=== PATIENT | female | born 1930 | race Caucasian/White ===

== ENCOUNTER → 2017-03-28 | Day surgery (SDC) | payer OTHER ==
[2017-03-06 10:44] VITALS: Ht 158.8 cm; Wt 75.0 kg
[~2017-03-28] VITALS: Ht 158.8 cm; Wt 75.0 kg
[~2017-03-28] MED LIST: 500ML BSS 0.3ML EPI 1:1000PF IRRIG ONE; ACETAMINOPHEN 325 MG TAB PO PRN; AMVISC PLUS 0.8ML SYRINGE INT OCU ONE; ATEN-173 PO; ATOR10TA88 PO; ATROPINE SULFATE 0.1 MG/ML 5ML SYR IV PRN; AcetaZOLAMIDE 250 MG TAB PO SCH; BETAXOLOL HCL 0.25% OP SUSP PER DROP CHARGE OPL SCH; BRIMONIDINE TART 0.2% OP SOLN PER DROP CHARGE ONE; BSS FLUSH ONE; CHOL1CAP13 PO; ENDOCOAT 0.85ML SYRINGE INT OCU ONE; EpHEDrine SULFATE INJ 50 MG/ML AMP IV PRN; EpINEphrine INJ 1MG/ML AMP 1 MG/ML AMP ONE; LIDOCAINE 4% OP SOLN DROP CHARGE ONE; LIDOCAINE 4% OP SOLN DROP CHARGE OPL SCH; LIDOCAINE HCL 1% MPF 2 ML VIAL ONE; MIDAZOLAM HCL 1 MG/ML 2ML VIAL ONE; MIX: 4ML BSS 1ML EPI 1:1000 PF INSTIL ONE; MOXIFLOXACIN OPH SOLN PER DROP CHARGE ONE; OCUCOAT 1 ML SOLN IO ONE; ONDANSETRON INJ 2 MG/ML 2 ML VIAL IV PRN; POVIDONE-IODINE OP SOLN 30 ML BTL ONE; PROPARACAINE 0.5% OP SOLN PER DROP CHARGE OPL SCH; SODIUM CHLORIDE 0.9% 1000ML 500 ML IV SCH; TOBRAMYCIN/DEXAMETHASONE OPH OINT PER APPLN CHARGE ONE; TRIATAB3 PO; TRMCR130WC TOP; WARF2.5T8 PO
--- NOTE | 2017-03-28 07:46 | History & Physical Bridge - SC ---
H&P Re-Evaluation Bridge Note: I have examined the patient, reviewed the History & Physical and in the interval since the performance of the History & Physical I have noted the following changes of clinical significance: No changes noted
[2017-03-28] MEDS: PHENYLEPHRINE HCL 2.5% OP SOLN PER DROP CHARGE OPL SCH ×2 (09:29→09:33)
[2017-03-28] MEDS: TROPICAMIDE 1% OP SOLN PER DROP CHARGE OPL SCH ×2 (09:30→09:34)
[2017-03-28] MEDS: CYCLOPENTOLATE HCL 1% OP SOLN PER DROP CHARGE OPL SCH ×2 (09:31→09:35)
[2017-03-28] MEDS: MOXIFLOXACIN OPH SOLN PER DROP CHARGE OPL SCH ×2 (09:32→09:39)
--- NOTE | 2017-03-28 10:17 | Discharge Instructions-SurgCtr ---
Discharge Instructions Date of Service Mar 28, 2017. Visit Reason for Visit: Cataract Left Eye Discharge Discharge Diagnosis / Problem: lens implant left eye Discharge Goals Goal(s): Improve function Activity Recommendations Activity Limitations: resume your previous activity Lifting Limitations: no more than 10 pounds Exercise/Sports Limitations: gradually increase as tolerated May Resume Sexual Activity: when tolerated Shower/Bathe: tomorrow Driving or Machine Use: resume 1 day after discharge Anesthesia . Post Anesthesia Instructions: If you have had General Anesthesia or IV Sedation: * Do not drive today. * Resume driving when surgeon permits. * Do not make important decisions or sign legal documents today. * Call surgeon for: 1. Temperature elevations greater than 101 degrees F. 2. Uncontrollable pain. 3. Excessive bleeding. 4. Persistent nausea and vomiting. 5. Medication intolerance (nausea, vomiting or rash). * For nausea and vomiting use only clear liquids such as: tea, soda, bouillon until nausea subsides, then gradually increase diet as tolerated. * If you have any concerns or questions, call your surgeon's office. If physician is unavailable and it is an emergency, call 911 or go to the nearest emergency room. . Instructions / Follow-Up Instructions / Follow-Up ACTIVITY RECOMMENDATIONS: * Light activities. * Mild irritation and blurred vision are common for the first few days. * You may walk outside, read, watch television. * Redness around the white part of the eye is common. MEDICATIONS: Resume previous medications unless instructed otherwise by your surgeon. * Take white Diamox (Acetazolamide) tablet at 1 pm today. Start all eye drops at 1 pm today: * Eye drops (today and tomorrow): Prednisone - one drop in operative eye every 3 hours while awake Ofloxacin - one drop in operative eye every 3 hours while awake SPECIAL CARE INSTRUCTIONS: * Tape plastic shield over eye to sleep at night. Call your doctor at with any concerns or problems. FOLLOW UP VISIT: Follow-up with Dr Umaña at [facility] office as scheduled. Diet Recommendations Home Diet: no limitations Procedures Procedures Performed: cataract extraction with lens implant Pending Studies Studies pending at discharge: no Medical Emergencies . Who to Call and When: Medical Emergencies: If at any time you feel your situation is an emergency, please call 911 immediately. . Non-Emergent Contact Non-Emergency issues call your: Primary Care Coordinator Call Non-Emergent contact if: your pain is not controlled [phone] . . "Provider Documentation" section prepared by Gaston Umaña. .
--- NOTE | 2017-03-28 10:18 | [facility] Operative Report ---
Operative Report Date of Service Mar 28, 2017. Operative Report 1. PREOPERATIVE DIAGNOSIS: Senile nuclear cataract, left eye. 2. POSTOPERATIVE DIAGNOSIS: Senile nuclear cataract, left eye. 3. PROCEDURE: Phacoemulsification of left cataract with posterior chamber lens implant, type Bausch [employer] Lomb, model MX60, power +24.0 diopters. ANESTHESIA: Local standby. SURGEON: Dr. Umaña. COMPLICATIONS: None. OPERATING TIME: 10 minutes. 4. OPERATION AND FINDINGS: DESCRIPTION OF PROCEDURE: The left pupil was dilated. The anesthetic was administered using a topical technique. The left eye was prepped and draped. A speculum was placed. A clear corneal incision was formed. The chamber was filled with Amvisc Plus and Endocoat. Epinephrine solution was used. A paracentesis was placed. A capsulorrhexis was performed. The nucleus was hydrodissected. The lens was removed with phacoemulsification. Time was 6.84 seconds. The aspiration unit was used to remove the cortex. The capsule was filled with Amvisc Plus. The lens implant was folded and placed into the capsule. The incision was hydrated. The Amvisc was aspirated. The wound was secure. The chamber was deep. The pupil was round. Brimonidine, TobraDex ointment and Vigamox solution were placed. The speculum was removed. The patient was returned to the Recovery Room in stable condition. I attest to the content of the Intraoperative Record and any orders documented therein. Any exceptions are noted below. The scribe's documentation has been prepared in my presence, under my direction and personally reviewed by me in its entirety. I confirm that the note above accurately reflects all work, treatment, procedures, and medical decision making performed by me. I personally scribed for Gaston Umaña M.D. (SOTO) on 03/28/17 at 10:18. Electronically submitted by aRchel Mcbride ([email or web address]).
[2017-03-28 10:45] VITALS: BP 157/78; PULSE 65; TEMP 36.5; O2SAT 99
--- NOTE | 2017-03-28 10:52 | Anesthesiology Progress Note ---
Anesthesia Post Op Note Date & Time Mar 28, 2017 at 10:52 Vital Signs Pain Intensity: 0 Vital Signs Past 12 Hours Date Time Temp Pulse Resp B/P (MAP) Pulse Ox O2 Delivery O2 Flow Rate FiO2 03/28/17 10:45 36.5 65 16 157/78 (104) 99 Room Air 03/28/17 10:22 36.3 68 16 150/85 (106) 100 Room Air 03/28/17 09:18 36.5 70 18 187/100 (129) 100 Room Air 171/95 (120) Notes Mental Status: alert / awake / arousable, participated in evaluation Nausea / Vomiting: adequately controlled Pain: adequately controlled Airway Patency, RR, SpO2: stable & adequate BP & HR: stable & adequate Hydration State: stable & adequate Anesthetic Complications: no major complications apparent
== END | disposition home or self-care (01) ==
LOC: X.SURG 08:38
PROVIDERS: ATTEND Specialist
DX: H25.12 Age-related nuclear cataract, left eye (principal); I48.91 Unspecified atrial fibrillation; I10 Essential (primary) hypertension; Z68.30 Body mass index [BMI] 30.0-30.9, adult; Z90.89 Acquired absence of other organs; Z79.01 Long term (current) use of anticoagulants

== ENCOUNTER → 2017-04-11 | Day surgery (SDC) | payer OTHER ==
[2017-04-04 11:36] VITALS: Ht 158.8 cm; Wt 75.0 kg
[~2017-04-11] VITALS: Ht 158.8 cm; Wt 75.0 kg
[~2017-04-11] MED LIST changes: -BETAXOLOL HCL 0.25% OP SUSP PER DROP CHARGE OPL SCH; +BETAXOLOL HCL 0.25% OP SUSP PER DROP CHARGE OPR SCH; +LACTATED RINGER'S 1000ML 500 ML IV SCH; -LIDOCAINE 4% OP SOLN DROP CHARGE OPL SCH; -ONDANSETRON INJ 2 MG/ML 2 ML VIAL IV PRN; -PROPARACAINE 0.5% OP SOLN PER DROP CHARGE OPL SCH; +PROPARACAINE 0.5% OP SOLN PER DROP CHARGE OPR SCH; -SODIUM CHLORIDE 0.9% 1000ML 500 ML IV SCH
[2017-04-11] MEDS: PHENYLEPHRINE HCL 2.5% OP SOLN PER DROP CHARGE OPR SCH ×2 (11:32→11:36)
[2017-04-11] MEDS: TROPICAMIDE 1% OP SOLN PER DROP CHARGE OPR SCH ×2 (11:33→11:38)
[2017-04-11] MEDS: CYCLOPENTOLATE HCL 1% OP SOLN PER DROP CHARGE OPR SCH ×2 (11:34→11:39)
[2017-04-11] MEDS: MOXIFLOXACIN OPH SOLN PER DROP CHARGE OPR SCH ×2 (11:35→11:51)
--- NOTE | 2017-04-11 12:37 | Discharge Instructions-SurgCtr ---
Discharge Instructions Date of Service Apr 11, 2017. Visit Reason for Visit: Right Cataract Discharge Discharge Diagnosis / Problem: lens implant right eye Discharge Goals Goal(s): Improve function Activity Recommendations Activity Limitations: resume your previous activity Lifting Limitations: no more than 10 pounds Exercise/Sports Limitations: gradually increase as tolerated May Resume Sexual Activity: when tolerated Shower/Bathe: tomorrow Driving or Machine Use: resume 1 day after discharge Anesthesia . Post Anesthesia Instructions: If you have had General Anesthesia or IV Sedation: * Do not drive today. * Resume driving when surgeon permits. * Do not make important decisions or sign legal documents today. * Call surgeon for: 1. Temperature elevations greater than 101 degrees F. 2. Uncontrollable pain. 3. Excessive bleeding. 4. Persistent nausea and vomiting. 5. Medication intolerance (nausea, vomiting or rash). * For nausea and vomiting use only clear liquids such as: tea, soda, bouillon until nausea subsides, then gradually increase diet as tolerated. * If you have any concerns or questions, call your surgeon's office. If physician is unavailable and it is an emergency, call 911 or go to the nearest emergency room. . Instructions / Follow-Up Instructions / Follow-Up ACTIVITY RECOMMENDATIONS: * Light activities. * Mild irritation and blurred vision are common for the first few days. * You may walk outside, read, watch television. * Redness around the white part of the eye is common. MEDICATIONS: Resume previous medications unless instructed otherwise by your surgeon. * Take white Diamox (Acetazolamide) tablet at 3 pm today. Start all eye drops at 3 pm today: * Eye drops (today and tomorrow): Prednisone - one drop in operative eye every 3 hours while awake Ofloxacin - one drop in operative eye every 3 hours while awake SPECIAL CARE INSTRUCTIONS: * Tape plastic shield over eye to sleep at night. Call your doctor at with any concerns or problems. FOLLOW UP VISIT: Follow-up with Dr Umaña at [place] office as scheduled. Diet Recommendations Home Diet: no limitations Procedures Procedures Performed: cataract extraction with lens implant Pending Studies Studies pending at discharge: no Medical Emergencies . Who to Call and When: Medical Emergencies: If at any time you feel your situation is an emergency, please call 911 immediately. . Non-Emergent Contact Non-Emergency issues call your: Peoplesoft Analyst Call Non-Emergent contact if: your pain is not controlled [phone] . . "Provider Documentation" section prepared by Gaston Umaña. .
--- NOTE | 2017-04-11 12:39 | [facility] Operative Report ---
Operative Report Date of Service Apr 11, 2017. Operative Report 1. PREOPERATIVE DIAGNOSIS: Senile nuclear cataract, right eye. 2. POSTOPERATIVE DIAGNOSIS: Senile nuclear cataract, right eye. 3. PROCEDURE: Phacoemulsification of right cataract with posterior chamber lens implant, type Bausch & Lomb, model MX60, power +23.5 diopters. ANESTHESIA: Local standby. SURGEON: Dr. Umaña. COMPLICATIONS: None. OPERATING TIME: 10 minutes. 4. OPERATION AND FINDINGS: DESCRIPTION OF PROCEDURE: The right pupil was dilated. The anesthetic was administered using a topical technique. The right eye was prepped and draped. A speculum was placed. A clear corneal incision was formed. The chamber was filled with Amvisc Plus and Endocoat. Epinephrine solution was used. A paracentesis was placed. A capsulorrhexis was performed. The nucleus was hydrodissected. The lens was removed with phacoemulsification. Time was 6.86 seconds. The aspiration unit was used to remove the cortex. The capsule was filled with Amvisc Plus. The lens implant was folded and placed into the capsule. The incision was hydrated. The Amvisc was aspirated. The wound was secure. The chamber was deep. The pupil was round. Brimonidine, TobraDex ointment and Vigamox solution were placed. The speculum was removed. The patient was returned to the Recovery Room in stable condition. I attest to the content of the Intraoperative Record and any orders documented therein. Any exceptions are noted below. The scribe's documentation has been prepared in my presence, under my direction and personally reviewed by me in its entirety. I confirm that the note above accurately reflects all work, treatment, procedures, and medical decision making performed by me. I personally scribed for Gaston Umaña M.D. (SOTO) on 04/11/17 at 12:39. Electronically submitted by Rachel Mcbride ([email or web address]).
[2017-04-11 13:11] VITALS: BP 154/85; PULSE 60; TEMP 36.7; O2SAT 98
--- NOTE | 2017-04-11 13:14 | Anesthesiology Progress Note ---
Anesthesia Post Op Note Date & Time Apr 11, 2017 at 13:13 Vital Signs Pain Intensity: 0 Vital Signs Past 12 Hours Date Time Temp Pulse Resp B/P (MAP) Pulse Ox O2 Delivery O2 Flow Rate FiO2 04/11/17 12:41 36.0 66 16 164/91 (115) 100 Room Air 04/11/17 11:22 36.4 66 16 181/99 (126) 100 Room Air Notes Mental Status: alert / awake / arousable, participated in evaluation Nausea / Vomiting: adequately controlled Pain: adequately controlled Airway Patency, RR, SpO2: stable & adequate BP & HR: stable & adequate Hydration State: stable & adequate Anesthetic Complications: no major complications apparent
== END | disposition home or self-care (01) ==
LOC: X.SURG 09:43
PROVIDERS: ATTEND Specialist
DX: H25.11 Age-related nuclear cataract, right eye (principal); I10 Essential (primary) hypertension; E78.00 Pure hypercholesterolemia, unspecified; M19.90 Unspecified osteoarthritis, unspecified site; Z98.42 Cataract extraction status, left eye; I25.10 Atherosclerotic heart disease of native coronary artery without angina pectoris; I48.91 Unspecified atrial fibrillation; Z79.01 Long term (current) use of anticoagulants

== ENCOUNTER 2018-10-16 15:39 | Inpatient (IN) ==
--- OUTSIDE RECORDS SUMMARY | 2018-10-16 15:42 | External Medical Summary | Continuity of Care Document ---
:1930 Author Name Donnie Morgan, Provider Address Unavailable Unavailable , Care Team Providers Name Role Phone Unavailable Unavailable Unavailable PCP, NO Unavailable Unavailable Problems Active medical history not documented Allergies and Adverse Reactions No Known Drug Allergies (Allergy) Medications Medications not documented Procedures Procedures not documented Immunizations Immunizations not documented Plan of Treatment Planned Observations Planned Goals not documented Results No Known Results Results not documented
[2018-10-16] MEDS ORDERED: LABETALOL HCL IV 5 MG/ML 20ML IV STA (16:16)
--- NOTE | 2018-10-16 16:30 | CT Scan Report ---
CT head/brain wo con CLINICAL HISTORY: 88 years-old Female with expressive aphasia eal for cva. Acute strokelike symptoms TECHNIQUE: Multiple axial CT images of the head were obtained without contrast. A dose lowering tech nique was utilized adhering to the principles of ALARA. CT DOSE: 537.48 mGy.cm COMPARISON: None. FINDINGS: No acute intracranial hemorrhage, midline shift, intracranial mass, hydrocephalus, territorial ischem ia or abnormal extra-axial collection. Age-related involutional changes. Since of white matter hypode nsities are suggestive of chronic microvascular ischemic disease. Senescent calcifications of the maeve tiform nuclei. Cerebral vascular calcifications are also noted. The calvarium is intact. Mild mucosal thickening of the paranasal sinuses. Trace left mastoid effusi on. The right mastoid air cells are clear. Soft tissues and orbits are unremarkable. Prior bilateral cataract repair. IMPRESSION: No acute intracranial abnormality. The above report was generated using voice recognition software. It may contain grammatical, syntax o r spelling errors. Electronically signed by: Joaquin Lisa M.D. 10/16/2018 4:29 PM
--- NOTE | 2018-10-16 16:32 | XRay Report ---
XR chest 1V portable CLINICAL HISTORY: stroke symptoms mental status change COMPARISON STUDY: 10/11/2014 FINDINGS: Mild stable cardiomegaly. Mild chronic interstitial prominence. Diaphragms are smooth. No f ocal infiltrative process. IMPRESSION: Chronic change. No acute process. The above report was generated using voice recognition software. It may contain grammatical, syntax or spelling errors. Electronically signed by: Nathan Gunderson M.D. 10/16/2018 4:30 PM
[2018-10-16 16:33] LABS: Basophils # (auto) 0.01 K/uL (0-0.2); Basophils % (auto) 0.1 %; Eosinophils # (auto) 0.16 K/uL (0-0.5); Eosinophils % (auto) 1.9 %; Hematocrit (blood only) 44.7 % (37-47); Hemoglobin 16.2 g/dL (12.0-16.0); Immature Granulocytes # (auto) 0.01 K/uL (0.00-0.02); Immature Granulocytes % (auto) 0.1 %; Lymphocytes # (auto) 4.07 K/uL (1.2-3.4); Lymphocytes % (auto) 48.9 %; Mean Corpuscular Hgb Conc 36.2 g/dL (32-36); Mean Corpuscular Volume 90.1 fL (80-100); Mean Platelet Volume 10.2 fL (7.4-10.4); Monocytes # (auto) 0.85 K/uL (0.11-0.59); Monocytes % (auto) 10.2 %; Neutrophils # (auto) 3.22 K/uL (1.4-6.5); Neutrophils % (auto) 38.8 %; Platelet Count 195 K/uL (130-400); RDW Coefficient of Variation 12.5 % (11.5-14.5); Red Blood Count 4.96 M/uL (4.2-5.4); White Blood Count 8.32 K/uL (4.8-10.8)
[2018-10-16 16:40] LABS: Alanine Aminotransferase 27 U/L (12-78); Albumin Level 4.3 gm/dl (3.4-5.0); Aspartate Aminotransferase 27 U/L (15-37); BUN Creatinine Ratio 14.8 (10-20); Blood Urea Nitrogen 13 mg/dl (7-18); Calcium 8.9 mg/dl (8.5-10.1); Carbon Dioxide 24 mmol/L (21-32); Chloride 100 mmol/L (98-107); Creatinine Clr Calc Pharmacy 42.5 ml/min; Est GFR (African American) 65.3; Est GFR (Non-African American) 56.3; Glucose 85 mg/dl (70-99); Potassium 3.4 mmol/L (3.5-5.1); Sodium 134 mmol/L (136-145)
[2018-10-16 16:45] LABS: Albumin Globulin Ratio 1.6 (0.9-2); Alkaline Phosphatase 64 U/L (45-117); Bilirubin,Total 1.6 mg/dl (0.2-1); Globulin 2.7 gm/dl (2.5-4.0); Troponin I < 0.015 ng/ml (0-0.045)
--- NOTE | 2018-10-16 17:54 | History & Physical Report ---
Date of Service October 16, 2018 Assessment & Plan (1) Altered mental status: Pt presented to ER with c/o AMS described as confusion/trouble thinking and had generalized weakness. Occurred while she was in open garage painting her car and then cleaning paint brushes with paint thinners. Symptoms lasted approx 1 hour and pt sat outside in fresh air and have since resolved. In ER pt afebrile, P: 75, R: 21, BP: 229/96, 219/102, 95% on RA. WBC: 8, Hgb: 16.2, Na: 134, K: 3.4, magnesium: 2.0. negative troponin. PT: 17.8, INR: 1.8, PTT: 30.3 CT Head: no acute changes CXR: no acute changes DDX: TIA/Stroke, fume exposure -Pt currently symptom free -Tele to monitor for arrhythmias -EKG in am -trend troponin -lipids, HA1C in am. Pending TSH -cbc, bmp in am -MRI without contrast -U/S carotids -echo -aspiration precautions -PT/OT consult -continue statin, continue coumadin -allow permissive HTN, labetalol SBP>180 or DBP>110 -neurology consult (2) Hypertensive urgency: BP in ER 229/96. Pt was given labetalol 5mg IV. repeat BP 187/84 No current neuro symptoms. No CP, SOB. -Pt with hx HTN. Pt stopped lisinopril 2.5mg daily secondary to itching -monitor BP -continue triamterene/HCTZ, metoprolol -labetalol prn HTN (3) Atrial fibrillation: Chronic a-fib Current rate controlled in 60-70's INR: 1.8 -will dose coumadin 2.5mg tonight -monitor INR and adjust coumadin dosage as appropriate (4) Dyslipidemia: -Continue statin (5) Diastolic dysfunction: Hx diastolic dysfunction -Current euvolemic (6) CKD (chronic kidney disease), stage III: Cr: 0.9. Baseline ~0.9 -monitor renal functions DVT Prophylaxis -On Coumadin Full Code as per discussion with pt Follows with Dr Bernard Salguero for routine care Pt was seen with Dr Pope. See addendum History of Present Illness Chief Complaint: AMS Primary Care Provider: Dr Bernard Salguero Pt is 88 y/o F with PMH chronic atrial fibrillation on Coumadin, HTN, dyslipidemia, CKD III, diastolic dysfunction presented to ER with c/o AMS. Pt states was painting her car in her garage and reports that garage door was open. States she was then using paint thinners to clean the brushes and was in the garage for approximately 1 hour. Pt states felt like she couldn't think and had some generalized weakness. She spoke to her son who noticed pt seemed confused. This was around 1:30PM. She reports a neighbor then came to check on her. She sat outside for awhile. 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 Symptoms lasted approx 1 hour and have since resolved. Pt reports chronic exertional dyspnea. Denies recent illness. Denies fever/chills, diaphoresis, N/V/D/C, CHOWDHURY, dizziness, syncope, vision changes, neck pain, CP, increased SOB, orthopnea, palpitations, cough, sore throat, choking, otalgia, rhinorrhea, abdominal pain, paresthesias, extremity edema, rashes, urinary symptoms. 02/2018: Hx stress echo : no inducible ischemia, EF: 55%, mild aortic regurgitation, moderate mitral regurgitation, moderate tricuspid regurgitation, mild pulmonary HTN 07/2018: Holter: a-fib with average HR 63bpm, minimal HR of 39 bpm, maximum HR of 169 bpm, PVCs moderate number of isolated complexes and periods of ventricular bigeminy Allergies Allergy/AdvReac Type Severity Reaction Status Date / Time No Known Allergies Allergy Verified 10/16/18 16:28 Home Medications Home Medications Medication Instructions Recorded Confirmed Type atorvastatin 10 mg PO HS 10/16/18 10/16/18 History cholecalciferol (vitamin D3) 2,000 unit PO DAILY 10/16/18 10/16/18 History metoprolol succinate 25 mg PO DAILY 10/16/18 10/16/18 History triamterene-hydrochlorothiazid 1 tab PO DAILY 10/16/18 10/16/18 History warfarin 2.5 mg PO UD 10/16/18 10/16/18 History Past Med/Surg History Medical History Dyslipidemia (Chronic) Diastolic dysfunction (Chronic) CKD (chronic kidney disease), stage III (Chronic) Atrial fibrillation (Chronic 05/25/14) HTN (hypertension) (Chronic) Pneumonia (Resolved) Surgical History History of hemorrhoidectomy (Chronic) Hx of tonsillectomy (Chronic) Family History Father Dyslipidemia Mother Hypertension Social History Current Living Situation: Alone Feels Safe at Home: Yes Smoking Status: Never smoker Hx Alcohol Use: Yes (1 beer twice a month) Hx Substance Use: No Review of Systems Review of Systems: All systems reviewed & are unremarkable except as noted in HPI & below Physical Exam Physical Exam: General: no acute distress, WDWN Head: normocephalic, atraumatic Eyes: PERRL, EOM's intact, conjunctiva non-injected, anicteric ENT: normal inspection external ears, nose, mucous membranes moist Neck: supple, trachea midline Lungs: clear, no respiratory distress, no wheezing/rhonchi/rales CV: irregularly irregular, rate 68, systolic murmur, no pretibial edema Abd: normal BS, soft, non-tender Ext: no cyanosis, no calf tenderness Neuro: A&O x 3, no focal deficits noted, normal speech, no facial drooping, tongue midline, strength 5/5 throughout bilateral upper and lower extremities, normal affect Skin: warm, dry Results & Data Vital Signs (Past 12 Hours) Vital Signs Temp Pulse Resp BP Pulse Ox 10/16/18 17:16 74 15 213/100 H 10/16/18 17:15 72 19 10/16/18 17:00 71 22 10/16/18 16:47 72 23 10/16/18 16:46 78 24 219/102 H 10/16/18 16:45 75 17 10/16/18 16:31 76 21 210/93 H 10/16/18 16:30 74 19 10/16/18 16:16 80 18 209/104 H 98 10/16/18 16:15 82 21 96 10/16/18 16:01 76 23 205/104 H 99 10/16/18 16:00 70 17 98 10/16/18 15:59 87 19 96 10/16/18 15:49 36.7 C 78 18 219/115 H 98 10/16/18 15:46 75 21 229/96 H 95 Laboratory Results Short CBC 10/16/18 Range/Units 15:46 WBC 8.32 (4.8-10.8) K/uL Hgb 16.2 H (12.0-16.0) g/dL Hct 44.7 (37-47) % Plt Count 195 (130-400) K/uL BMP 10/16/18 15:46 Sodium 134 L Potassium 3.4 L Chloride 100 Carbon Dioxide 24 BUN 13 Creatinine 0.91 Glucose 85 Calcium 8.9 Cardiac Enzymes 10/16/18 Range/Units 15:46 Troponin I < 0.015 (0-0.045) ng/ml Liver Function 10/16/18 Range/Units 15:46 Total Bilirubin 1.6 H (0.2-1) mg/dl AST 27 (15-37) U/L ALT 27 (12-78) U/L Alkaline Phosphatase 64 (45-117) U/L Albumin 4.3 (3.4-5.0) gm/dl Diagnostic Findings CT HEAD: IMPRESSION: No acute intracranial abnormality. CXR: IMPRESSION: Chronic change. No acute process. ECG Rate (beats per minute): 71 Rhythm: atrial fibrillation Findings: + T-wave inversion (inferior) Additional Comments: q wave septal Supervising Physician Co-Signing Physician Notes Patient is an 88-year-old female with history of atrial fibrillation on chronic anticoagulation, diastolic dysfunction and other medical problems presents with history of altered mental status. Patient was using turpentine to clean her paint brushes in her garage with door open and developed confusion, generalized weakness which lasted for about 1 hour duration. Please review HPI for complete details of the presentation. Currently while in ED she was noted to have elevated high blood pressure. She is alert awake and oriented x3, weakness has resolved. CT head showed no acute intracranial abnormality. No known history of loss of consciousness, seizure like activity, headache, change in vision, slurred speech. On exam patient is moderately built and nourished, no apparent distress, normocephalic atraumatic, lungs are clear to auscultation, irregularly irregular rhythm, no murmur, no pedal edema, abdomen soft nontender, n eurologically no focal deficits. Patient is admitted for evaluation of altered mental status, hypertensive urgency. Her INR is subtherapeutic. Her symptoms are likely secondary to exposure to turpentine. Differential to rule out acute CVA/TIA. Will admit in telemetry floor. Stroke work-up. Neurology consulted. Allow permissive hypertension. Labetalol as needed. Discussed with poison cont rol--supportive management suggested. Neuro checks. PT OT prior to discharge. I personally reviewed the record. Patient is interviewed and examined at bedside. Patient's care is coordinated with Denice Morales PA-C. Please refer to the documentation above for details of patient's presentation and for discussion of other issues. (1) Altered mental status Altered mental status type: unspecified Qualified Code(s): R41.82 - Altered mental status, unspecified
[2018-10-16 17:57] LABS: INR 1.8 (0.9-1.1); Partial Thromboplastin Ratio 1.1; Partial Thromboplastin Time 30.3 Seconds (21.0-31.0); Prothrombin Time 17.8 Seconds (9.0-12.0)
[2018-10-16] MEDS ORDERED: LABETALOL HCL IV 5 MG/ML 20ML IV PRN (19:10)
[2018-10-16] MEDS ORDERED: ACETAMINOPHEN 325 MG TAB PO PRN (19:10)
[2018-10-16] MEDS ORDERED: PHARMACIST DISCHARGE MED REC CONSULT PRN (19:10)
[2018-10-16] MEDS ORDERED: POTASSIUM CHLORIDE 20 MEQ TABCR PO ONE (19:45)
[2018-10-16 19:58] LABS: Troponin I 0.023 ng/ml (0-0.045)
--- NOTE | 2018-10-16 20:48 | Magnetic Resonance Report ---
MR brain wo con HISTORY: 88 years-old Female AMS R/O stroke acutely altered mental status with strokelike symptoms COMPARISON: CT head 10/16/2018 TECHNIQUE: Multiplanar multisequence MRI of the brain was obtained without use of IV contrast. FINDINGS: The large [id number]-[id number]-kafx tie knitter helper localizer images demonstrate no gross extracranial abnormality. There i s no restricted diffusion to suggest acute or subacute infarction. Midline structures including the c orpus callosum, brainstem, optic chiasm and pituitary gland appear unremarkable on the sagittal T1 se michael. 5 mm pineal gland cyst. No cerebellar tonsillar herniation. Degenerative changes noted about th e imaged cervical spine. No acute intracranial hemorrhage, midline shift, abnormal extra-axial collections, hydrocephalus or i ntracranial mass identified. Age-related involutional changes with extensive patchy T2/FLAIR hyperint ensities suggestive of advanced chronic microvascular ischemic disease. The major flow voids at the l evel of the skull base appear to be patent. Moderate left mastoid effusion. Mild mucosal thickening a bout the paranasal sinuses. Prior bilateral cataract repair. Soft tissues and skull are unremarkable. IMPRESSION: 1. No acute intracranial abnormality, specifically no acute or subacute infarction. 2. Age-related involutional changes with extensive chronic microvascular ischemic disease. 3. Moderate left mastoid effusion with mild paranasal sinus disease. The above report was generated using voice recognition software. It may contain grammatical, syntax o r spelling errors. Electronically signed by: Joaquin Lisa M.D. 10/16/2018 8:47 PM
[2018-10-16] MEDS: ATORVASTATIN 10 MG TAB PO SCH (21:01)
[2018-10-16] MEDS: WARFARIN SOD 2.5 MG TAB PO SCH (21:01)
--- NOTE | 2018-10-16 23:03 | Ultrasound Report ---
US carotid doppler BI CLINICAL HISTORY: 88 years-old Female with AMS. Acutely altered mental status COMPARISON: Brain MRI of same day TECHNIQUE: Multiple real time sonographic images of the carotid bifurcations were obtained assessing zabala scale, color Doppler and spectral wave form appearance FINDINGS: RIGHT CAROTID: The peak systolic velocity within the right ICA measures 50 cm/sec. The end diastoli c velocity measured 8 cm/sec. The ICA to CCA ratio measured 0.81 which correlates with a stenosis of 0-50%. There is moderate mixed plaque formation of the right carotid bulb and proximal right ICA. LEFT CAROTID: The peak systolic velocity within the left ICA measures 60 cm/sec. The end diastolic velocity measured 12 cm/sec. The ICA to CCA ratio measured 0.87 which correlates with a stenosis of 0 -50%. Moderate mixed plaque formation about the left carotid bulb, proximal internal and external ca rotid arteries. Elevated peak systolic velocity of 200 cm/s noted about the left external carotid art mariangel. There is normal antegrade vertebral flow bilaterally. Blood pressure on the right measures 205/86 and on the left measures 203/99. IMPRESSION: 1. Mixed plaque formation of the bilateral carotid bulbs and proximal carotid arteries without hemod ynamically significant stenosis of the internal carotid arteries. 2. Normal antegrade vertebral flow bilaterally. The above report was generated using voice recognition software. It may contain grammatical, syntax o r spelling errors. Electronically signed by: Joaquin Lisa M.D. 10/16/2018 11:01 PM
--- NOTE | 2018-10-17 00:26 | Emergency Department Note ---
Entered by Isa Baez acting as a scribe for History of Present Illness General Chief complaint: Hypertension Source: patient and family Mode of arrival: EMS Limitations: no limitations History of Present Illness Provider complaint: confusion Onset (ago): hour(s) (2.5) Location: head Pain Consistency: + other (episode) Quality: + other (confusion) Associated symptoms: + denies other symptoms (numbness, difficulty walking, vision issues, dizzy, abd pain) and + weakness; no chest pain, no fever/chills, no headaches and no shortness of breath Treatments prior to arrival: other (Metoprolol) The patient is an 88 year old female who presents to the ER via EMS following an episode of confusion that occurred around 1330 today. The daughter reports that she received a call from the patients son around 1400 stating that the patient was confused and not making any sense. The patient notes that she remembers this and explains that she was using turpentine to paint her car around 1330 today and while cleaning the brush, her son called her. She reports that she was talking to him about a television show and could not think of the names. Her daughter spoke to her brother and so sent her neighbor over who is a nurse. Her nurse friend confirmed that the patient was having difficulty speaking. She states that this episode lasted about an hour and that she feels baseline now. She notes that she does have a history of hypertension and that she did take her Metoprolol today. The daughter reports that she was recently switched to this medication by her cop. The patient denies any episodes of focal numbness or weakness. She also denies any difficulty walking, vision issues, headaches, dizziness, fevers, chest pain, shortness of breath or abdominal pain. She reports that she also has a history of a-fib and is on Coumadin. Home Medications Home Medications Medication Instructions Recorded Confirmed Type atorvastatin 10 mg PO HS 10/16/18 10/16/18 History cholecalciferol (vitamin D3) 2,000 unit PO DAILY 10/16/18 10/16/18 History metoprolol succinate 25 mg PO DAILY 10/16/18 10/16/18 History triamterene-hydrochlorothiazid 1 tab PO DAILY 10/16/18 10/16/18 History warfarin 2.5 mg PO UD 10/16/18 10/16/18 History Allergies Allergy/AdvReac Type Severity Reaction Status Date / Time No Known Allergies Allergy Verified 10/16/18 16:28 Past Med/Surg History Medical History Dyslipidemia (Chronic) Diastolic dysfunction (Chronic) CKD (chronic kidney disease), stage III (Chronic) Atrial fibrillation (Chronic 05/25/14) HTN (hypertension) (Chronic) Pneumonia (Resolved) Surgical History History of hemorrhoidectomy (Chronic) Hx of tonsillectomy (Chronic) Family History Father Dyslipidemia Mother Hypertension Social History Current Living Situation: Alone Feels Safe at Home: Yes Smoking Status: Never smoker Hx Alcohol Use: Yes (1 beer twice a month) Hx Substance Use: No Review of Systems See HPI for pertinent positives & negatives. and A total of 10 systems reviewed and were otherwise negative Physical Exam Vital Signs Vital Signs - 24 hr 10/16/18 15:46 10/16/18 15:49 10/16/18 15:59 Temperature 36.7 C Temperature Source Oral Sepsis Recent Fever Within 48 Hours No Sepsis Action Taken by Nursing No Action Required Pulse Rate 75 78 87 Pulse Rate [Right] Pulse Rate from SpO2 Sensor 82 84 Respiratory Rate 21 18 19 Blood Pressure 229/96 H 219/115 H Blood Pressure [Right Arm] Blood Pressure Mean 140 149 Blood Pressure Mean [Right Arm] Blood Pressure Position [Right Arm] Pulse Oximetry 95 98 96 Oxygen Delivery Method Room Air 10/16/18 16:00 10/16/18 16:01 10/16/18 16:15 Temperature Temperature Source Sepsis Recent Fever Within 48 Hours Sepsis Action Taken by Nursing Pulse Rate 70 76 82 Pulse Rate [Right] Pulse Rate from SpO2 Sensor 73 74 82 Respiratory Rate 17 23 21 Blood Pressure 205/104 H Blood Pressure [Right Arm] Blood Pressure Mean 137 Blood Pressure Mean [Right Arm] Blood Pressure Position [Right Arm] Pulse Oximetry 98 99 96 Oxygen Delivery Method 10/16/18 16:16 10/16/18 16:30 10/16/18 16:31 Temperature Temperature Source Sepsis Recent Fever Within 48 Hours Sepsis Action Taken by Nursing Pulse Rate 80 74 76 Pulse Rate [Right] Pulse Rate from SpO2 Sensor 90 Respiratory Rate 18 19 21 Blood Pressure 209/104 H 210/93 H Blood Pressure [Right Arm] Blood Pressure Mean 139 132 Blood Pressure Mean [Right Arm] Blood Pressure Position [Right Arm] Pulse Oximetry 98 Oxygen Delivery Method 10/16/18 16:45 10/16/18 16:46 10/16/18 16:47 Temperature Temperature Source Sepsis Recent Fever Within 48 Hours Sepsis Action Taken by Nursing Pulse Rate 75 78 72 Pulse Rate [Right] Pulse Rate from SpO2 Sensor Respiratory Rate 17 24 23 Blood Pressure 219/102 H Blood Pressure [Right Arm] Blood Pressure Mean 141 Blood Pressure Mean [Right Arm] Blood Pressure Position [Right Arm] Pulse Oximetry Oxygen Delivery Method 10/16/18 17:00 10/16/18 17:15 10/16/18 17:16 Temperature Temperature Source Sepsis Recent Fever Within 48 Hours Sepsis Action Taken by Nursing Pulse Rate 71 72 74 Pulse Rate [Right] Pulse Rate from SpO2 Sensor Respiratory Rate 22 19 15 Blood Pressure 213/100 H Blood Pressure [Right Arm] Blood Pressure Mean 137 Blood Pressure Mean [Right Arm] Blood Pressure Position [Right Arm] Pulse Oximetry Oxygen Delivery Method 10/16/18 17:24 10/16/18 17:30 10/16/18 17:31 Temperature Temperature Source Sepsis Recent Fever Within 48 Hours Sepsis Action Taken by Nursing Pulse Rate 86 94 H 87 Pulse Rate [Right] Pulse Rate from SpO2 Sensor Respiratory Rate 22 18 20 Blood Pressure 217/97 H 224/95 H Blood Pressure [Right Arm] Blood Pressure Mean 137 138 Blood Pressure Mean [Right Arm] Blood Pressure Position [Right Arm] Pulse Oximetry Oxygen Delivery Method 10/16/18 17:46 10/16/18 18:00 10/16/18 18:01 Temperature Temperature Source Sepsis Recent Fever Within 48 Hours Sepsis Action Taken by Nursing Pulse Rate 75 75 70 Pulse Rate [Right] Pulse Rate from SpO2 Sensor Respiratory Rate 16 20 17 Blood Pressure 187/105 H 187/84 H Blood Pressure [Right Arm] Blood Pressure Mean 132 118 Blood Pressure Mean [Right Arm] Blood Pressure Position [Right Arm] Pulse Oximetry Oxygen Delivery Method 10/16/18 22:46 Temperature 36.5 C Temperature Source Oral Sepsis Recent Fever Within 48 Hours Sepsis Action Taken by Nursing Pulse Rate Pulse Rate [Right] 50 L Pulse Rate from SpO2 Sensor Respiratory Rate 18 Blood Pressure Blood Pressure [Right Arm] 158/78 H Blood Pressure Mean Blood Pressure Mean [Right Arm] 104 Blood Pressure Position [Right Arm] Right Lateral Pulse Oximetry 97 Oxygen Delivery Method Room Air Constitutional: Vital signs reviewed. Eyes: Pupils are equal round reactive to light. Conjunctiva are noninjected. ENT: Pharynx is clear without erythema or exudate. Mucous membranes are moist. Neck supple without meningeal signs. Respiratory: Clear to auscultation bilaterally. Breath sounds are equal bilaterally. Cardiovascular: Irregularly irregular rhythm. Normal rate. No rubs or gallops. GI: Soft, nondistended and nontender. Bowel sounds are present. Musculoskeletal: No peripheral edema. No lower extremity tenderness. Integumentary: No cyanosis. Neurological: The patient is awake and alert. Cranial nerves II-XII are intact. Motor is 5 out of 5 all extremities. Sensation is intact to light touch all extremities. Normal speech. No pronator drift. No limb ataxia. Psychiatric: Normal affect. Course 1606: The patient was evaluated in room A2, and a complete history and physical examination were performed. 1643: I spoke to poison control who stated that turpentine would not cause aphasia. 1650: I updated the patient on her test results and recommended hospitalization. 1652: I discussed the patient's case with Denice Morales PA-C [facility] Hospitalist. She will evaluate the patient for further management. Administered Medications Atorvastatin Calcium (Lipitor) 10 mg PO HS [facility] Stop: 11/15/18 20:59 Last Admin: 10/16/18 21:01 Dose: 10 mg Documented by: [id number] Warfarin Sodium (Coumadin) 2.5 mg PO DAILY@1600 [facility] Stop: 11/15/18 19:59 Last Admin: 10/16/18 21:01 Dose: 2.5 mg Documented by: [id number] Discontinued Medications Labetalol HCl (Normodyne) 5 mg IV NOW STA Stop: 10/16/18 16:17 Last Admin: 10/16/18 16:46 Dose: 5 mg Documented by: [id number] Cosigned by: [id number] Potassium Chloride (Klor-Con M20) 40 meq PO NOW ONE Stop: 10/16/18 19:46 Last Admin: 10/16/18 21:01 Dose: 40 meq Documented by: [id number] Medical Decision Making Differential Diagnosis Differential diagnosis includes: TIA, CVA, ICH, metabolic derangement, inhalation injury. Medical Records Attestation: I reviewed the patient's medical records. I did perform a limited focused review of portions of the patient's old chart on the electronic medical record. The patient has had no recent pertinent visits to this hospital. Home Medications Current Medication List: was personally reviewed by me Laboratory Data Attestation: I reviewed the patient's lab results. Result diagrams: 10/16/18 15:46 10/16/18 15:46 Lab Results 10/16/18 10/16/18 10/16/18 Range/Units 15:46 15:46 15:46 WBC 8.32 (4.8-10.8) K/uL RBC 4.96 (4.2-5.4) M/uL Hgb 16.2 H (12.0-16.0) g/dL Hct 44.7 (37-47) % MCV 90.1 (80-100) fL MCH 32.7 (25-34) pg MCHC 36.2 H (32-36) g/dL RDW Std Deviation 41.0 (36.4-46.3) fL RDW Coeff of Brandon 12.5 (11.5-14.5) % Plt Count 195 (130-400) K/uL MPV 10.2 (7.4-10.4) fL Immature Gran % (Auto) 0.1 % Neut % (Auto) 38.8 % Lymph % (Auto) 48.9 % [place] % (Auto) 10.2 % Eos % (Auto) 1.9 % Baso % (Auto) 0.1 % Immature Gran # (Auto) 0.01 (0.00-0.02) K/uL Neut # (Auto) 3.22 (1.4-6.5) K/uL Lymph # (Auto) 4.07 H (1.2-3.4) K/uL [place] # (Auto) 0.85 H (0.11-0.59) K/uL Eos # (Auto) 0.16 (0-0.5) K/uL Baso # (Auto) 0.01 (0-0.2) K/uL PT Cancelled INR Cancelled APTT Cancelled PTT Ratio Cancelled Sodium 134 L (136-145) mmol/L Potassium 3.4 L (3.5-5.1) mmol/L Chloride 100 (98-107) mmol/L Carbon Dioxide 24 (21-32) mmol/L Anion Gap 10.0 (3-11) BUN 13 (7-18) mg/dl Creatinine 0.91 (0.6-1.2) mg/dl Est Cr Clr Drug Dosing 42.5 ml/min Est GFR ( Amer) 65.3 Est GFR (Non-Af Amer) 56.3 BUN/Creatinine Ratio 14.8 (10-20) Glucose 85 (70-99) mg/dl Calcium 8.9 (8.5-10.1) mg/dl Magnesium 2.0 (1.8-2.4) mg/dl Total Bilirubin 1.6 H (0.2-1) mg/dl AST 27 (15-37) U/L ALT 27 (12-78) U/L Alkaline Phosphatase 64 (45-117) U/L Troponin I < 0.015 (0-0.045) ng/ml Total Protein 7.0 (6.4-8.2) gm/dl Albumin 4.3 (3.4-5.0) gm/dl Globulin 2.7 (2.5-4.0) gm/dl Albumin/Globulin Ratio 1.6 (0.9-2) TSH (0.300-4.500) uIu/ml 10/16/18 10/16/18 10/16/18 Range/Units 17:01 17:35 19:15 WBC (4.8-10.8) K/uL RBC (4.2-5.4) M/uL Hgb (12.0-16.0) g/dL Hct (37-47) % MCV (80-100) fL MCH (25-34) pg MCHC (32-36) g/dL RDW Std Deviation (36.4-46.3) fL RDW Coeff of Brandon (11.5-14.5) % Plt Count (130-400) K/uL MPV (7.4-10.4) fL Immature Gran % (Auto) % Neut % (Auto) % Lymph % (Auto) % [place] % (Auto) % Eos % (Auto) % Baso % (Auto) % Immature Gran # (Auto) (0.00-0.02) K/uL Neut # (Auto) (1.4-6.5) K/uL Lymph # (Auto) (1.2-3.4) K/uL [place] # (Auto) (0.11-0.59) K/uL Eos # (Auto) (0-0.5) K/uL Baso # (Auto) (0-0.2) K/uL PT Cancelled 17.8 H INR Cancelled 1.8 H APTT Cancelled 30.3 PTT Ratio Cancelled 1.1 Sodium (136-145) mmol/L Potassium (3.5-5.1) mmol/L Chloride (98-107) mmol/L Carbon Dioxide (21-32) mmol/L Anion Gap (3-11) BUN (7-18) mg/dl Creatinine (0.6-1.2) mg/dl Est Cr Clr Drug Dosing ml/min Est GFR ( Amer) Est GFR (Non-Af Amer) BUN/Creatinine Ratio (10-20) Glucose (70-99) mg/dl Calcium (8.5-10.1) mg/dl Magnesium (1.8-2.4) mg/dl Total Bilirubin (0.2-1) mg/dl AST (15-37) U/L ALT (12-78) U/L Alkaline Phosphatase (45-117) U/L Troponin I 0.023 (0-0.045) ng/ml Total Protein (6.4-8.2) gm/dl Albumin (3.4-5.0) gm/dl Globulin (2.5-4.0) gm/dl Albumin/Globulin Ratio (0.9-2) TSH 2.680 (0.300-4.500) uIu/ml Imaging Data Radiologist's Impression: Radiology results as stated below per my review and the radiologist's interpretation: XR chest 1V portable CLINICAL HISTORY: stroke symptoms mental status change COMPARISON STUDY: 10/11/2014 FINDINGS: Mild stable cardiomegaly. Mild chronic interstitial prominence. Diaphragms are smooth. No focal infiltrative process. IMPRESSION: Chronic change. No acute process. The above report was generated using voice recognition software. It may contain grammatical, syntax or spelling errors. Electronically signed by: Nathan Gunderson M.D. 10/16/2018 4:[address] head/brain wo con CLINICAL HISTORY: 88 years-old Female with expressive aphasia eal for cva. Acute strokelike symptoms TECHNIQUE: Multiple axial CT images of the head were obtained without contrast. A dose lowering technique was utilized adhering to the principles of ALARA. CT DOSE: 537.48 mGy.cm COMPARISON: None. FINDINGS: No acute intracranial hemorrhage, midline shift, intracranial mass, hydrocephalus, territorial ischemia or abnormal extra-axial collection. Age- related involutional changes. Since of white matter hypodensities are suggestive of chronic microvascular ischemic disease. Senescent calcifications of the lentiform nuclei. Cerebral vascular calcifications are also noted. The calvarium is intact. Mild mucosal thickening of the paranasal sinuses. Trace left mastoid effusion. The right mastoid air cells are clear. Soft tissues and orbits are unremarkable. Prior bilateral cataract repair. IMPRESSION: No acute intracranial abnormality. The above report was generated using voice recognition software. It may contain grammatical, syntax or spelling errors. Electronically signed by: Joaquin Lisa M.D. 10/16/2018 4:29 PM ECG Data Attestation: I personally reviewed and interpreted this ECG as follows: Indication: other (stroke-like symptoms) Rate (beats per minute): 71 Rhythm: atrial fibrillation Findings: no PVC and no ST elevation Blood Pressure Blood Pressure Findings: Elevated blood pressure Blood Pressure Disposition: further management by hospitalist ITZEL Winchester I did evaluate the patient as noted above. The patient is presenting with an episode of difficulty speaking. She was using turpentine and paint but that seems unlikely to have given her the symptoms. I did confirm with poison control that these would not likely cause her symptoms. Currently she is neurologically intact. IV access was established. The patient was placed on a continuous monitoring manager. I did order and personally review the patient's 12- lead EKG as described above. There is no evidence of acute ischemia. I did order and personally reviewed the images of the patient's chest x-ray as described above. Chest x-ray is unremarkable. I did order and review the patient's blood work as noted in the electronic medical record. She has mild hypokalemia. INR is subtherapeutic. I did order a CT of the head. I did review the images myself as well as the radiology report as described above. Since of acute intracranial abnormality. Her blood pressure was significantly elevated. I did treat her with labetalol IV. Her blood pressure did improve. I did discuss the test results with the patient. I did recommend she be hospitalized for further care and evaluation. I did discuss the case with the hospitalist and case reviewer. Impression & Plan Expressive aphasia, Altered mental status, Hypertensive emergency, Subtherapeutic international normalized ratio (INR) Discharge Plan Visit Data *Final* Discharge Date/Time: 10/16/18 18:39 Chief Complaint: Hypertension ED Provider: Hermes Jacobsen Discharge Problem: Expressive aphasia, Altered mental status, Hypertensive emergency, Subtherapeutic international normalized ratio (INR) Patient Disposition: Admitted As Inpatient Discharge Instructions Interventions: ED Discharge Assessment Last Done: 10/16/18 18:39 Discharge Problem: Altered mental status Qualifiers: Altered mental status type: unspecified Qualified Code(s): R41.82 - Altered mental status, unspecified The scribe's documentation has been prepared under my direction and personally reviewed by me in its entirety. I confirm that the note above accurately reflects all work, treatment, procedures, and medical decision making performed by me.
[2018-10-17 03:25] LABS: INR 1.7 (0.9-1.1); Prothrombin Time 17.2 Seconds (9.0-12.0)
[2018-10-17 03:30] LABS: Hematocrit (blood only) 40.4 % (37-47); Hemoglobin 14.8 g/dL (12.0-16.0); Mean Corpuscular Hgb Conc 36.6 g/dL (32-36); Mean Corpuscular Volume 89.2 fL (80-100); Mean Platelet Volume 9.6 fL (7.4-10.4); Platelet Count 177 K/uL (130-400); RDW Coefficient of Variation 12.5 % (11.5-14.5); RDW Standard Deviation 40.6 fL (36.4-46.3); Red Blood Count 4.53 M/uL (4.2-5.4); White Blood Count 6.88 K/uL (4.8-10.8)
[2018-10-17 03:45] LABS: BUN Creatinine Ratio 11.8 (10-20); Calcium 8.8 mg/dl (8.5-10.1); Est GFR (African American) 77.5; Est GFR (Non-African American) 66.8; Potassium 3.7 mmol/L (3.5-5.1)
[2018-10-17 03:49] LABS: Troponin I 0.027 ng/ml (0-0.045)
[2018-10-17 04:24] LABS: Basophils # (auto) 0.02 K/uL (0-0.2); Basophils % (auto) 0.3 %; Eosinophils # (auto) 0.15 K/uL (0-0.5); Eosinophils % (auto) 2.2 %; Immature Granulocytes # (auto) 0.01 K/uL (0.00-0.02); Immature Granulocytes % (auto) 0.1 %; Lymphocytes % (auto) 50.9 %; Monocytes # (auto) 0.72 K/uL (0.11-0.59); Monocytes % (auto) 10.5 %; Neutrophils # (auto) 2.48 K/uL (1.4-6.5)
[2018-10-17 06:28] LABS: Estimated Average Glucose 108 mg/dl; Hemoglobin A1C 5.4 % (4.5-5.6)
[2018-10-17] MEDS: CHOLECALCIFEROL 1,000 UNITS TAB PO SCH (08:30)
[2018-10-17] MEDS: TRIAMTERENE/HCTZ 37.5/25MG TAB PO SCH (08:30)
[2018-10-17] MEDS: METOPROLOL SUCC 25MG EXT REL TAB PO SCH (08:31)
--- NOTE | 2018-10-17 14:14 | Neurology Consultation ---
Date of Consultation October 17, 2018 Assessment & Plan (1) Altered mental status: 1. MRI - no acute findings possible TIA 2. carotid doppler with some plaques but no significant stenosis 3. PT/OT speech for any discharge needs 4. optimize HTN, HLD, DM LDL <70 5. INR- continue coumadin to 2.0-3.0 therapeutic level no follow up needed with neurology will see PRN Supervising Physician Co-Signing Physician Notes I have seen and discussed above patient with Dr Salomón Lennon. Patient was seen and examined. Family at bedside. Patient currently back to baseline. Oriented to person and place. Comprehension intact. Speech is clear. No tremor. No ataxia with finger to nose. MRI brain reviewed. 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 I believe this patient had Hypertensive encephalopathy, SBP> 220 mg Hg. Recommend gradual reduction in blood pressures. Continue Coumadin for secondary stroke prevention. Please call with any further questions. History of Present Illness Reason for Consultation: AMS Requesting Physician: Rick Gallego MD Attending Physician: Rick Gallego MD History of Present Illness April is a 88 year old female with PMH chronic afib on Coumadin, HTN, HLD, CKD III, diastolic dysfunction presented to ER with a AMS. She was painting her car in her garage and reports that garage door was opened then she was using paint thinners to clean the brushes and was in the garage for approximately 1 hour. She couldn't think and had some generalized weakness. She spoke to her son who noticed pt seemed confused around 1:30PM. She reports a neighbor then came to check on her she went outside for a while but still seemed confused so he called 911. Her blood pressure was elevated in the ED. She states she takes all of her medications as directed. 02/2018: Hx stress echo : no inducible ischemia, EF: 55%, mild aortic regurgitation, moderate mitral regurgitation, moderate tricuspid regurgitation, mild pulmonary HTN. 07/2018: Holter: a-fib with average HR 63bpm, minimal HR of 39 bpm, maximum HR of 169 bpm, PVCs moderate number of isolated complexes and periods of ventricular bigeminy. She is on coumadin for her a fib. She can remember the entire event and knows she was having difficulty with forming words. denies CP, SOB, abdominal pain, one sided weakness, numbness tingling, N, V, falls, head trauma, swallowing issues, no current confusion or slurred speech. She has no history of stroke or seizure. Allergies Allergy/AdvReac Type Severity Reaction Status Date / Time No Known Allergies Allergy Verified 10/16/18 16:28 Home Medications Home Medications Medication Instructions Recorded Confirmed Type atorvastatin 10 mg PO HS 10/16/18 10/16/18 History cholecalciferol (vitamin D3) 2,000 unit PO DAILY 10/16/18 10/16/18 History metoprolol succinate 25 mg PO DAILY 10/16/18 10/16/18 History triamterene-hydrochlorothiazid 1 tab PO DAILY 10/16/18 10/16/18 History warfarin 2.5 mg PO UD 10/16/18 10/16/18 History Patient History Medical History Dyslipidemia (Chronic) Diastolic dysfunction (Chronic) CKD (chronic kidney disease), stage III (Chronic) Atrial fibrillation (Chronic 05/25/14) HTN (hypertension) (Chronic) Pneumonia (Resolved) Surgical History History of hemorrhoidectomy (Chronic) Hx of tonsillectomy (Chronic) Family History Father Dyslipidemia Mother Hypertension Social History Communication Ability: Effective Beliefs That Will Affect Care: None Current Living Situation: Alone Other Information That Helps Us Care for You: No Feels Safe at Home: Yes Safety Concerns: Feels Safe At This Time Smoking Status: Never smoker Hx Alcohol Use: No Hx Substance Use: No Physical Exam Physical Exam: Physical Exam: Constitutional: appearance over nourished, healthy Ears, Nose, Mouth and Throat: mucous membranes moist, no injection and skin rosacea on nose and cheeks., eyes normal Cardiovascular: irregular Respiratory: clear to auscultation (CTA) and no rales, ronchi or wheeze Musculoskeletal: no peripheral edema and good distal pulses Skin: no stigmata of neurocutaneous disease noted and normal and intact Eyes: extraocular muscles intact (EOMI) and pupils equal, round and reactive to light (PERRL) NEUROLOGIC EXAMINATION: Mental status: Alert and interactive Oriented [facility], 2018, October 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 Sensory: to light or cool touch Coordination: finger to nose no bi pass, rapid hand movement intact bilaterally Gait/Stance: Posture normal. sitting up at edge of bed Motor: Negative for pronator drift of out stretched arms with eyes closed. 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 deltoids 5/5 bilaterally, hip flex plantar flex ext 5/5 Results & Data Vital Signs (Past 12 Hours) Vital Signs Temp Pulse Resp BP Pulse Ox 10/17/18 11:12 36.6 C 56 L 18 155/76 H 97 10/17/18 08:31 68 10/17/18 07:33 36.5 C 58 L 18 170/75 H 97 10/17/18 04:00 36.5 C 87 17 149/81 H 93 Laboratory Results Abnormal lab results 10/16/18 10/16/18 10/16/18 Range/Units 15:46 15:46 17:35 Hgb 16.2 H (12.0-16.0) g/dL MCHC 36.2 H (32-36) g/dL Lymph # (Auto) 4.07 H (1.2-3.4) K/uL [place] # (Auto) 0.85 H (0.11-0.59) K/uL PT 17.8 H (9.0-12.0) Seconds INR 1.8 H (0.9-1.1) Sodium 134 L (136-145) mmol/L Potassium 3.4 L (3.5-5.1) mmol/L Anion Gap (3-11) Total Bilirubin 1.6 H (0.2-1) mg/dl 10/17/18 10/17/18 10/17/18 Range/Units 03:04 03:05 03:05 Hgb (12.0-16.0) g/dL MCHC 36.6 H (32-36) g/dL Lymph # (Auto) 3.50 H (1.2-3.4) K/uL [place] # (Auto) 0.72 H (0.11-0.59) K/uL PT 17.2 H (9.0-12.0) Seconds INR 1.7 H (0.9-1.1) Sodium 135 L (136-145) mmol/L Potassium (3.5-5.1) mmol/L Anion Gap 0 L (3-11) Total Bilirubin (0.2-1) mg/dl Diagnostic Findings CXR- Chronic change. No acute process. CT head-No acute intracranial abnormality. MRI brain-. No acute intracranial abnormality, specifically no acute or subacute infarction. Age-related involutional changes with extensive chronic microvascular ischemic disease. Moderate left mastoid effusion with mild paranasal sinus disease. carotid doppler- Mixed plaque formation of the bilateral carotid bulbs and proximal carotid arteries without hemodynamically significant stenosis of the internal carotid arteries. Normal antegrade vertebral flow bilaterally. (1) Altered mental status Altered mental status type: unspecified Qualified Code(s): R41.82 - Altered mental status, unspecified
[2018-10-17] MEDS: WARFARIN SOD 2.5 MG TAB PO SCH (16:10)
--- NOTE | 2018-10-17 16:15 | Hospitalist Progress Note ---
Date of Service October 17, 2018 Assessment & Plan (1) Altered mental status: Pt presented to ER with c/o AMS described as confusion/trouble thinking and had generalized weakness. Occurred while she was in open garage painting her car and then cleaning paint brushes with paint thinners. Symptoms lasted approx 1 hour and pt sat outside in fresh air and have since resolved. In ER pt afebrile, P: 75, R: 21, BP: 229/96, 219/102, 95% on RA. WBC: 8, Hgb: 16.2, Na: 134, K: 3.4, magnesium: 2.0. negative troponin. PT: 17.8, INR: 1.8, PTT: 30.[address] 10/16/18: No acute intracranial abnormality Brain MRI 10/16/18: 1. No acute intracranial abnormality, specifically no acute or subacute in farction. 2. Age-related involutional changes with extensive chronic microvascular ischemic disease. 3. Moderate left mastoid effusion with mild paranasal sinus disease. Carotid Ultrasound 1. No acute intracranial abnormality, specifically no acute or subacute infarction. 2. Age-related involutional changes with extensive chronic microvascular ischemic disease. 3. Moderate left mastoid effusion with mild paranasal sinus disease. CT Head: no acute changes As per evaluation from neurology consult Dr. Lennon patient's initial altered mental status likely due to Hypertensive encephalopathy and that toxic encephalopathy from fumes is unlikely currently patient is at mental baseline as verified with her family members on 10/17/18 (2) Hypertensive urgency: Blood pressure in ER 229/96 on 10/16/18 Pt was given labetalol 5mg IV. repeat BP 187/84 -continue triamterene/HCTZ, metoprolol -labetalol prn HTN -blood pressure improved by 10/17/17; However blood pressure trended up from AM blood pressure of 149/51 to 185/81 and in addition to current medications, amlodipine 10 mg daily is added (3) Atrial fibrillation: Chronic atrial fibrillation heart is rate controlled with metoprolol INR: 1.8 on 10/16/18 and given coumadin 2.5 mg INR 1.7 on 10/17/18 and will increase to coumadin 3 mg daily (4) Dyslipidemia: -Continue statin (5) Diastolic dysfunction: Hx diastolic dysfunction -Current euvolemic (6) CKD (chronic kidney disease), stage III: Baseline creatinine is around 0.9 -monitor renal function DVT Prophylaxis -On Coumadin Full Code Subjective Patient seen and examined several times today. She does not have any focal neurological deficits and awake and alert and oriented to person, time, and place. However blood pressure trended up from AM blood pressure of 149/51 to 185/81. Patient agrees to stay further in the hospital for better blood pressure control Physical Exam Constitutional: well developed Eyes: PERRL, conjunctivae normal, anicteric sclerae EOM intact bilaterally ENMT: external ear and nose normal, oropharynx normal Neck: trachea midline, no thyromegaly Respiratory: normal respiratory effort, lungs clear to auscultation Cardiovascular: Rate/Rhythm: + bradycardic and + irregularly irregular Gastrointestinal (Abdomen): normal bowel sounds, soft, nontender, no hepatosplenomegaly Musculoskeletal: no cyanosis or clubbing, extremities motor strength 5/5 Head/Neck/Chest: normocephalic and head atraumatic Neurologic: PERRL, EOMI, accommodation nl, no face palsy, no dysarthria CN's II-XI intact bilaterally Psychiatric: A+Ox3, euthymic affect Results & Data Vital Signs (Past 12 Hours) Vital Signs Temp Pulse Resp BP Pulse Ox 10/17/18 15:23 36.6 C 70 18 185/81 H 99 10/17/18 11:12 36.6 C 56 L 18 155/76 H 97 10/17/18 08:31 68 10/17/18 07:33 36.5 C 58 L 18 170/75 H 97 (1) Altered mental status Altered mental status type: unspecified Qualified Code(s): R41.82 - Altered mental status, unspecified
[2018-10-17] MEDS: AMLODIPINE BESYLATE 5 MG TAB PO SCH (16:33)
[2018-10-17] MEDS ORDERED: WARFARIN SOD 0.5 MG TAB PO STA (16:34)
[2018-10-17] MEDS: ATORVASTATIN 10 MG TAB PO SCH (19:35)
[2018-10-17 23:02] VITALS: O2SAT 97
[2018-10-18 05:57] LABS: Hematocrit (blood only) 41.5 % (37-47); Hemoglobin 14.8 g/dL (12.0-16.0); Mean Corpuscular Hgb Conc 35.7 g/dL (32-36); Mean Corpuscular Volume 89.8 fL (80-100); Mean Platelet Volume 10.1 fL (7.4-10.4); Platelet Count 177 K/uL (130-400); RDW Coefficient of Variation 12.5 % (11.5-14.5); RDW Standard Deviation 40.9 fL (36.4-46.3); Red Blood Count 4.62 M/uL (4.2-5.4)
[2018-10-18 06:08] LABS: INR 2.1 (0.9-1.1); Prothrombin Time 20.6 Seconds (9.0-12.0)
[2018-10-18 06:49] LABS: BUN Creatinine Ratio 17.3 (10-20); Calcium 8.7 mg/dl (8.5-10.1); Creatinine Clr Calc Pharmacy 46.1 ml/min; Est GFR (African American) 71.9; Est GFR (Non-African American) 62.1; Potassium 3.5 mmol/L (3.5-5.1)
[2018-10-18 07:13] LABS: Basophils # (auto) 0.02 K/uL (0-0.2); Basophils % (auto) 0.3 %; Eosinophils # (auto) 0.24 K/uL (0-0.5); Eosinophils % (auto) 3.5 %; Immature Granulocytes # (auto) 0.01 K/uL (0.00-0.02); Immature Granulocytes % (auto) 0.1 %; Lymphocytes % (auto) 50.7 %; Monocytes # (auto) 0.88 K/uL (0.11-0.59); Monocytes % (auto) 12.8 %; Neutrophils # (auto) 2.25 K/uL (1.4-6.5); Neutrophils % (auto) 32.6 %
[2018-10-18] MEDS: TRIAMTERENE/HCTZ 37.5/25MG TAB PO SCH (09:06)
[2018-10-18] MEDS: CHOLECALCIFEROL 1,000 UNITS TAB PO SCH (09:06)
[2018-10-18] MEDS: METOPROLOL SUCC 25MG EXT REL TAB PO SCH (09:06)
[2018-10-18] MEDS: AMLODIPINE BESYLATE 5 MG TAB PO SCH (09:06)
[2018-10-18] MEDS ORDERED: LOSARTAN POTASSIUM 50 MG TAB PO SCH (11:15)
[2018-10-18 11:19] VITALS: TEMP 97.7
[2018-10-18 13:42] VITALS: BP 134/67; PULSE 65
--- NOTE | 2018-10-18 14:19 | Hospitalist Progress Note ---
Date of Service October 18, 2018 Assessment & Plan (1) Altered mental status: Altered Mental Status secondary to Hypertensive encephalopathy Pt presented to ER with c/o AMS described as confusion/trouble thinking and had generalized weakness. Occurred while she was in open garage painting her car and then cleaning paint brushes with paint thinners. Symptoms lasted approx 1 hour and pt sat outside in fresh air and have since resolved. In ER pt afebrile, P: 75, R: 21, BP: 229/96, 219/102, 95% on RA. WBC: 8, Hgb: 16.2, Na: 134, K: 3.4, magnesium: 2.0. negative troponin. PT: 17.8, INR: 1.8, PTT: 30.[address] 10/16/18: No acute intracranial abnormality Brain MRI 10/16/18: 1. No acute intracranial abnormality, specifically no acute or subacute infarction. 2. Age-related involutional changes with extensive chronic microvascular ischemic disease. 3. Moderate left mastoid effusion with mild paranasal sinus disease. Carotid Ultrasound 1. No acute intracranial abnormality, specifically no acute or subacute infarction. 2. Age-related involutional changes with extensive chronic microvascular ischemic disease. 3. Moderate left mastoid effusion with mild paranasal sinus disease. CT Head: no acute changes As per evaluation from neurology consult Dr. Lennon patient's initial altered mental status likely due to Hypertensive encephalopathy and that toxic encephalopathy from fumes is unlikely currently patient is at mental baseline as verified with her family members on 10/17/18 (2) Hypertensive urgency: Blood pressure in ER 229/96 on 10/16/18 Pt was given labetalol 5mg IV. repeat BP 187/84 -continue triamterene/HCTZ, metoprolol -labetalol prn HTN -blood pressure improved by 10/17/17; However blood pressure trended up from AM blood pressure of 149/51 to 185/81 and in addition triamterene/HCTZ, metoprolol, amlodipine 10 mg daily is added -blood pressure controlled by triamterene/HCTZ, metoprolol, amlodipine 10 mg daily and also was given 1 time dose of losartan 50 mg -Patient has prescriptions electronically sent to [facility] for amlodipine 10 mg daily and losartan 25 mg daily which should be continued with home dose triamterene-HCTZ and metoprolol succinate (3) Atrial fibrillation: Chronic atrial fibrillation heart is rate controlled with metoprolol initial subtherapeutic INR, Anticoagulated by anticoagulation therapy (coumadin) and INR is now at goal INR: 1.8 on 10/16/18 and given coumadin 2.5 mg INR 1.7 on 10/17/18 and will increase to coumadin 3 mg daily INR on 10/18/18 is 2.1 which is at goal between INR of 2 to 3, patient can resume home dose coumadin (4) Dyslipidemia: -Continue statin (5) Diastolic dysfunction: Hx diastolic dysfunction -Current euvolemic (6) CKD (chronic kidney disease), stage III: Baseline creatinine is around 0.9 -renal function is stable DVT Prophylaxis -On Coumadin Full Code Discharge Diagnosis Altered Mental Status secondary to Hypertensive encephalopathy, Hypertensive Urgency, Atrial Fibrillation, initial subtherapeutic INR, Anticoagulated by anticoagulation therapy (coumadin) and INR is now at goal Discharge Instructions Patient is discharged to home Patient has prescriptions electronically sent to [facility] for amlodipine 10 mg daily and losartan 25 mg daily which should be continued with home dose triamterene-HCTZ and metoprolol succinate 10/24/2018 11:20 AM Provider Bette Salguero MD Department Internal Medicine [address] [place] [id number] 11/06/2018 1:00 PM Provider [facility] 3:40 PM Provider Bette Salguero MD Department Internal Medicine [facility] 03/27/2019 1:30 PM Provider Nathan Tyler PA-C Department Cardiology [facility] Subjective Patient denies chest pain. denies shortness of breath. denies lightheadedness. no motor deficits. no vomiting. baseline mental status Physical Exam Constitutional: well developed Eyes: PERRL, conjunctivae normal, anicteric sclerae EOM intact bilaterally ENMT: external ear and nose normal, oropharynx normal Neck: trachea midline, no thyromegaly Respiratory: normal respiratory effort, lungs clear to auscultation Cardiovascular: Rate/Rhythm: + bradycardic and + irregularly irregular Gastrointestinal (Abdomen): normal bowel sounds, soft, nontender, no hepatosplenomegaly Musculoskeletal: no cyanosis or clubbing, extremities motor strength 5/5 Head/Neck/Chest: normocephalic and head atraumatic Neurologic: PERRL, EOMI, accommodation nl, no face palsy, no dysarthria CN's II-XI intact bilaterally Psychiatric: A+Ox3, euthymic affect Results & Data Vital Signs (Past 12 Hours) Vital Signs Temp Pulse Pulse Resp BP BP Pulse Ox 10/18/18 13:41 65 134/67 10/18/18 11:02 36.5 C 64 18 174/77 H 97 10/18/18 07:24 36.3 C L 60 18 153/75 H 97 10/18/18 06:56 59 L 10/18/18 04:00 36.3 C L 60 21 147/77 H 97 (1) Altered mental status Altered mental status type: unspecified Qualified Code(s): R41.82 - Altered mental status, unspecified
--- NOTE | 2018-10-18 14:24 | Discharge Summary ---
Date of Service October 18, 2018 Admission HPI Per Admitting Provider Pt is 88 y/o F with PMH chronic atrial fibrillation on Coumadin, HTN, dyslipidemia, CKD III, diastolic dysfunction presented to ER with c/o AMS. Pt states was painting her car in her garage and reports that garage door was open. States she was then using paint thinners to clean the brushes and was in the garage for approximately 1 hour. Pt states felt like she couldn't think and had some generalized weakness. She spoke to her son who noticed pt seemed confused. This was around 1:30PM. She reports a neighbor then came to check on her. She sat outside for awhile. It is reported by neighbor that she couldn't remember the word rail washer. Symptoms lasted approx 1 hour and have since resolved. Pt reports chronic exertional dyspnea. Denies recent illness. Denies fever/chills, diaphoresis, N/V/D/C, CHOWDHURY, dizziness, syncope, vision changes, neck pain, CP, increased SOB, orthopnea, palpitations, cough, sore throat, choking, otalgia, rhinorrhea, abdominal pain, paresthesias, extremity edema, rashes, urinary symptoms. 02/2018: Hx stress echo : no inducible ischemia, EF: 55%, mild aortic regurgitation, moderate mitral regurgitation, moderate tricuspid regurgitation, mild pulmonary HTN 07/2018: Holter: a-fib with average HR 63bpm, minimal HR of 39 bpm, maximum HR of 169 bpm, PVCs moderate number of isolated complexes and periods of ventricular bigeminy Admission Exam Per Admitting Provider General: no acute distress, WDWN Head: normocephalic, atraumatic Eyes: PERRL, EOM's intact, conjunctiva non-injected, anicteric ENT: normal inspection external ears, nose, mucous membranes moist Neck: supple, trachea midline Lungs: clear, no respiratory distress, no wheezing/rhonchi/rales CV: irregularly irregular, rate 68, systolic murmur, no pretibial edema Abd: normal BS, soft, non-tender Ext: no cyanosis, no calf tenderness Neuro: A&O x 3, no focal deficits noted, normal speech, no facial drooping, tongue midline, strength 5/5 throughout bilateral upper and lower extremities, normal affect Skin: warm, dry Principal Diagnosis Altered Mental Status secondary to Hypertensive encephalopathy, Hypertensive Urgency, Atrial Fibrillation, initial subtherapeutic INR, Anticoagulated by anticoagulation therapy (coumadin) and INR is now at goal Discharge Exam Constitutional well developed Eyes PERRL, conjunctivae normal, anicteric sclerae EOM intact bilaterally ENMT external ear and nose normal, oropharynx normal Neck trachea midline, no thyromegaly Respiratory normal respiratory effort, lungs clear to auscultation Cardiovascular Rate/Rhythm: + bradycardic Gastrointestinal (Abdomen) normal bowel sounds, soft, nontender, no hepatosplenomegaly Musculoskeletal no cyanosis or clubbing, extremities motor strength 5/5 Head/Neck/Chest: normocephalic and head atraumatic Neurologic PERRL, EOMI, accommodation nl, no face palsy, no dysarthria CN's II-XI intact bilaterally Psychiatric A+Ox3, euthymic affect Discharge Data Allergies Allergy/AdvReac Type Severity Reaction Status Date / Time No Known Allergies Allergy Verified 10/16/18 16:28 Consultations 10/16/18 16:52 ED Decision to Admit Stat 10/16/18 19:10 Consult Case Management - Discharge Planning Routine Consult Neurology Routine Ordered Studies 10/16/18 16:16 CT head/brain wo con Stat 10/16/18 19:10 MR brain wo con Routine US carotid doppler BI Routine Hospital Course (1) Altered mental status: Altered Mental Status secondary to Hypertensive encephalopathy Pt presented to ER with c/o AMS described as confusion/trouble thinking and had generalized weakness. Occurred while she was in open garage painting her car and then cleaning paint brushes with paint thinners. Symptoms lasted approx 1 hour and pt sat outside in fresh air and have since resolved. In ER pt afebrile, P: 75, R: 21, BP: 229/96, 219/102, 95% on RA. WBC: 8, Hgb: 16.2, Na: 134, K: 3.4, magnesium: 2.0. negative troponin. PT: 17.8, INR: 1.8, PTT: 30.[address] 10/16/18: No acute intracranial abnormality Brain MRI 10/16/18: 1. No acute intracranial abnormality, specifically no acute or subacute infarction. 2. Age-related involutional changes with extensive chronic microvascular ischemic disease. 3. Moderate left mastoid effusion with mild paranasal sinus disease. Carotid Ultrasound 1. No acute intracranial abnormality, specifically no acute or subacute infarction. 2. Age-related involutional changes with extensive chronic microvascular ischemic disease. 3. Moderate left mastoid effusion with mild paranasal sinus disease. CT Head: no acute changes As per evaluation from neurology consult Dr. Lennon patient's initial altered mental status likely due to Hypertensive encephalopathy and that toxic encephalopathy from fumes is unlikely currently patient is at mental baseline as verified with her family members on 10/17/18 (2) Hypertensive urgency: Blood pressure in ER 229/96 on 10/16/18 Pt was given labetalol 5mg IV. repeat BP 187/84 -continue triamterene/HCTZ, metoprolol -labetalol prn HTN -blood pressure improved by 10/17/17; However blood pressure trended up from AM blood pressure of 149/51 to 185/81 and in addition triamterene/HCTZ, metoprolol, amlodipine 10 mg daily is added -blood pressure controlled by triamterene/HCTZ, metoprolol, amlodipine 10 mg daily and also was given 1 time dose of losartan 50 mg -Patient has prescriptions electronically sent to [facility] for amlodipine 10 mg daily and losartan 25 mg daily which should be continued with home dose triamterene-HCTZ and metoprolol succinate (3) Atrial fibrillation: Chronic atrial fibrillation heart is rate controlled with metoprolol initial subtherapeutic INR, Anticoagulated by anticoagulation therapy (coumadin) and INR is now at goal INR: 1.8 on 10/16/18 and given coumadin 2.5 mg INR 1.7 on 10/17/18 and will increase to coumadin 3 mg daily INR on 10/18/18 is 2.1 which is at goal between INR of 2 to 3, patient can resume home dose coumadin (4) Dyslipidemia: -Continue statin (5) Diastolic dysfunction: Hx diastolic dysfunction -Current euvolemic (6) CKD (chronic kidney disease), stage III: Baseline creatinine is around 0.9 -renal function is stable DVT Prophylaxis -On Coumadin Full Code Discharge Diagnosis Altered Mental Status secondary to Hypertensive encephalopathy, Hypertensive Urgency, Atrial Fibrillation, initial subtherapeutic INR, Anticoagulated by anticoagulation therapy (coumadin) and INR is now at goal Discharge Instructions Patient is discharged to home Patient has prescriptions electronically sent to [facility] for amlodipine 10 mg daily and losartan 25 mg daily which should be continued with home dose triamterene-HCTZ and metoprolol succinate 10/24/2018 11:20 AM Provider Bette Salguero MD Department Internal Medicine [address] [place] [id number] 11/06/2018 1:00 PM Provider [facility], [facility] 12/03/2018 3:40 PM Provider Bette Salguero MD Department Internal Medicine [facility] 03/27/2019 1:30 PM Provider Nathan Tyler PA-C Department Cardiology [facility] Total Time Total Time Spent Total Time Spent (In Minutes): 40 minutes Total Time Includes: Examination of the Patient, Discharge Planning and Medication Reconciliation Discharge Plan Discharge Items Patient Disposition: Home - Self-Care Reason For Visit: AMS Discharge Diagnosis: Altered Mental Status secondary to Hypertensive encephalopathy, Hypertensive Urgency, Atrial Fibrillation, initial subtherapeutic INR, Anticoagulated by anticoagulation therapy (coumadin) and INR is now at goal Condition: Good Discharge Goals: Improve disease control Activity: Resume your previous activity Non-emergency contact: Primary Care Provider Call non-emergency contact if: you have any medication questions Follow-up/Referrals: PCP,ROBERT [Primary Care Provider] - Addtl Provider Instructions: Patient is discharged to home Patient has prescriptions electronically sent to [facility] for amlodipine 10 mg daily and losartan 25 mg daily which should be continued with home dose triamterene-HCTZ and metoprolol succinate 10/24/2018 11:20 AM Provider Bette Salguero MD Department Internal Medicine [address] [place] [address] 11/06/2018 1:00 PM Provider [facility], [facility] 12/03/2018 3:40 PM Provider Bette Salguero MD Department Internal Medicine [facility] 03/27/2019 1:30 PM Provider Nathan Tyler PA-C Department Cardiology [facility] Prescriptions: New amlodipine 10 mg tablet 10 mg PO QAM 30 Days Qty: 30 RF: 0 losartan 25 mg tablet 25 mg PO QAM 30 Days Qty: 30 RF: 0 Continued atorvastatin 10 mg Tablet 10 mg PO HS RF: 0 warfarin 2.5 mg Tablet 2.5 mg PO UD RF: 0 triamterene-hydrochlorothiazid 37.5-25 mg Tablet 1 tab PO DAILY RF: 0 metoprolol succinate 25 mg Tablet Extended Release 24 Hr 25 mg PO DAILY RF: 0 cholecalciferol (vitamin D3) 2,000 unit Capsule 2,000 unit PO DAILY RF: 0 Stand-Alone Forms: [facility] Discharge Orders: Discharge Order (Routine); Ordered 10/18/18 Ordered By: Rick Gallego Admission Data Admit Date/Time: 10/16/18 17:47 Attending Provider: Rick Gallego Admit Provider: Rolly Pope Primary Care Provider: PCP,NO Other Providers: Rolly Pope ; Salomón Lennon Service: Telemetry Medical
[2018-10-18] MEDS ORDERED: WARFARIN SOD 3 MG TAB PO SCH (16:00)
[2018-10-18] MEDS ORDERED: WARFARIN SOD 2.5 MG TAB PO SCH (16:00)
[2018-10-19] MEDS ORDERED: LOSARTAN POTASSIUM 25 MG TAB PO SCH (09:00)
== END 2018-10-18 15:43 | disposition home or self-care (01) | DRG 78 ==
LOC: ED 15:39 → 2N 17:47

== ENCOUNTER 2018-10-18 19:20 | Inpatient (IN) ==
[2018-10-18] MEDS ORDERED: ONDANSETRON INJ 2 MG/ML 2 ML VIAL IV STA (19:39)
[2018-10-18] MEDS ORDERED: ACETAMINOPHEN 1,000 MG/100 ML VIAL IV STA (19:39)
[2018-10-18] MEDS ORDERED: SODIUM CHLORIDE 0.9% 500 ML IV SCH (19:45)
--- NOTE | 2018-10-18 20:33 | Emergency Department Note ---
Entered by Duke Thacker acting as a scribe for Santiago Puri MD History of Present Illness General Chief complaint: Syncope (Near Syncope) Stated complaint: NEAR SYNCOPE Time Seen by Provider: 10/18/18 19:22 Source: patient and old records reviewed History of Present Illness Onset (ago): minute(s) (prior to arrival) Location: head (global) Pain Consistency: + now resolved Quality: + other (near syncope and fall) Exacerbated By: + other (standing after bowel movement) Associated symptoms: + diaphoresis and + nausea/vomiting; no chest pain and no shortness of breath Per medical records the patient was discharged today from [facility] after diagnosis of hypertensive encephalopathy. She was discharged on 10 mg Norvasc daily and 25 mg Losartan daily. She was instructed to continue Hydrochlorothiazide and Metoprolol. The patient is an 88 year old female who presents to the Emergency Room with complaints of an episode of near syncope and a fall occurring prior to arrival. The patient reports that after discharge from the hospital today she was eating, went to the bathroom and had a bowel movement, became dizzy after standing, and fell. She states that she struck her shoulder on the wall and slid to the floor, but she denies head trauma. She notes nausea, vomiting, and diaphoresis. She denies chest pain or shortness of breath. She reports a history of almost passing out. She notes that she felt fine prior to her bowel movement. She repo rts current lower back pain that is not significantly changed from baseline. She states that she takes Coumadin. Home Medications Home Medications Medication Instructions Recorded Confirmed Type atorvastatin 10 mg PO HS 10/16/18 10/18/18 History cholecalciferol (vitamin D3) 2,000 units PO DAILY 10/16/18 10/18/18 History metoprolol succinate 25 mg PO DAILY 10/16/18 10/18/18 History triamterene-hydrochlorothiazid 1 tab PO DAILY 10/16/18 10/18/18 History warfarin 1.25 mg PO 2XWK 10/16/18 10/18/18 History amlodipine 10 mg PO QAM 30 Days #30 tab 10/18/18 10/18/18 Rx losartan 25 mg PO QAM 30 Days #30 tab 10/18/18 10/18/18 Rx warfarin 2.5 mg PO 5XWK 10/18/18 10/18/18 History Allergies Allergy/AdvReac Type Severity Reaction Status Date / Time No Known Allergies Allergy Verified 10/18/18 22:34 Past Med/Surg History Medical History Dyslipidemia (Chronic) Diastolic dysfunction (Chronic) CKD (chronic kidney disease), stage III (Chronic) Atrial fibrillation (Chronic 05/25/14) HTN (hypertension) (Chronic) Pneumonia (Resolved) Surgical History History of hemorrhoidectomy (Chronic) Hx of tonsillectomy (Chronic) Family History Father Dyslipidemia Mother Hypertension Social History Preferred Language: Tongan Communication Ability: Effective Beliefs That Will Affect Care: None Current Living Situation: Alone Feels Safe at Home: Yes Smoking Status: Never smoker Hx Alcohol Use: No Hx Substance Use: No Review of Systems See HPI for pertinent positives & negatives. and A total of 10 systems reviewed and were otherwise negative Physical Exam Vital Signs Vital Signs - 24 hr 10/18/18 19:32 10/18/18 19:44 10/18/18 21:50 Temperature 36.5 C Temperature Source Oral Sepsis Recent Fever Within 48 Hours No Sepsis New/Unexplained Change in Mental Status No Sepsis Action Taken by Nursing No Action Required Pulse Rate 101 H 65 Pulse Rate [Apical] 79 Pulse Rhythm Regular Pulse Strength Normal Respiratory Rate 20 Respiratory Effort / Characteristics Non-Labored Respiratory Depth Normal Respiratory Pattern Regular Blood Pressure 123/76 Blood Pressure [Left Arm] 148/68 H Blood Pressure Mean 91 Blood Pressure Mean [Left Arm] 94 Blood Pressure Position Lying Pulse Oximetry 96 100 100 Oxygen Delivery Method Room Air Room Air Room Air GENERAL: Patient is in no acute distress. HEENT: No acute trauma, normocephalic atraumatic, mucous membranes moist, no nasal congestion, no scleral icterus. NECK: No stridor, no adenopathy, no meningismus, trachea is midline. LUNGS: Clear to auscultation bilaterally, no wheeze, no rhonchi, breath sounds equal. HEART: Without murmurs gallops or rubs, regular rate and rhythm. ABDOMEN: Soft, nontender, bowel sounds positive, no hernias, no peritonitis. EXTREMITIES: No cyanosis or edema, full range of motion of all the joints without pain or difficulty, no signs for acute trauma. NEUROLOGIC: Oriented x 3, no acute motor or sensory deficits, no focal weakness. SKIN: No rash, no jaundice, no diaphoresis. Course 1929: The patient was evaluated in room A11B. A complete history and physical examination were performed. 2138: I updated the patient on results and plan for hospitalization. 2147: I consulted Dr. Sari Naikjefferson hospitallauren Hospitalist. The patient will be reevaluated for hospitalization. Administered Medications Discontinued Medications Acetaminophen (Ofirmev) 1,000 mg in 100 mls @ 400 mls/hr IV NOW STA Stop: 10/18/18 19:53 Last Infusion: 10/18/18 21:10 Dose: 0 mls/hr Documented by: [id number] Admin: 10/18/18 20:53 Dose: 400 mls/hr Documented by: [id number] Sodium Chloride (Nss) 500 mls @ 999 mls/hr IV .Q31M CHECO Stop: 10/18/18 20:15 Last Infusion: 10/18/18 22:24 Dose: 0 mls/hr Documented by: [id number] Admin: 10/18/18 20:52 Dose: 999 mls/hr Documented by: [id number] Ondansetron HCl (Zofran) 4 mg IV NOW STA Stop: 10/18/18 19:40 Last Admin: 10/18/18 20:52 Dose: 4 mg Documented by: [id number] Medical Decision Making Differential Diagnosis Differential diagnosis: medication reaction, orthostasis, dysthymia, anemia, dehydration, electrolyte imbalance, UTI, intracranial bleeding or lumbar fracture Medical Records Attestation: I reviewed the patient's medical records. Home Medications Current Medication List: was personally reviewed by me Laboratory Data Attestation: I reviewed the patient's lab results. Result diagrams: 10/18/18 20:48 10/18/18 20:22 Lab Results 10/18/18 10/18/18 10/18/18 Range/Units 20:09 20:22 20:22 WBC Cancelled RBC Cancelled Hgb Cancelled Hct Cancelled MCV Cancelled MCH Cancelled MCHC Cancelled RDW Std Deviation Cancelled RDW Coeff of Brandon Cancelled Plt Count Cancelled MPV Cancelled Immature Gran % (Auto) Cancelled Neut % (Auto) Cancelled Lymph % (Auto) Cancelled [place] % (Auto) Cancelled Eos % (Auto) Cancelled Baso % (Auto) Cancelled Immature Gran # (Auto) Cancelled Neut # (Auto) Cancelled Lymph # (Auto) Cancelled [place] # (Auto) Cancelled Eos # (Auto) Cancelled Baso # (Auto) Cancelled Absolute Nucleated RBC Cancelled Nucleated RBC % (auto) Cancelled Neutrophils % (Manual) Cancelled Band Neutrophils % Cancelled Lymphocytes % (Manual) Cancelled Prolymphocyte % Cancelled Reactive Lymphs % (Man) Cancelled Monocytes % (Manual) Cancelled Eosinophils % (Manual) Cancelled Basophils % (Manual) Cancelled Metamyelocytes % (Man) Cancelled Myelocytes % (Man) Cancelled Promyelocytes % (Man) Cancelled Blast Cells % (Manual) Cancelled Plasma Cell % (Manual) Cancelled Other Cells % Cancelled Nucleated RBC % Cancelled Neutrophils # (Manual) Cancelled Band Neutrophils # Cancelled Total Absolute Neuts Cancelled Lymphocytes # (Manual) Cancelled Prolymphocyte # Cancelled Reactive Lymphs # Cancelled Total Abs Lymphocytes Cancelled Monocytes # (Manual) Cancelled Eosinophils # (Manual) Cancelled Basophils # (Manual) Cancelled Metamyelocytes # (Man) Cancelled Myelocytes # (Manual) Cancelled Promyelocytes # (Man) Cancelled Blast Cells # (Man) Cancelled Plasma Cell # (Manual) Cancelled Other Cells # Cancelled Nucleated RBCs # (Man) Cancelled Hypersegmented Neuts Cancelled Hyposegmented Neuts Cancelled Hypogranular Neuts Cancelled Large Granular Lymphs Cancelled # Lrg Granular Lymphs Cancelled Hairy Cells Cancelled Smudge Cells Cancelled Toxic Granulation Cancelled Toxic Vacuolation Cancelled Dohle Bodies Cancelled Massiel Rods Cancelled Platelet Estimate Cancelled Hypogranular Platelets Cancelled Clumped Platelets Cancelled Giant Platelets Cancelled Platelet Satelliting Cancelled RBC Morphology Cancelled Polychromasia Cancelled Hypochromasia Cancelled Poikilocytosis Cancelled Basophilic Stippling Cancelled Anisocytosis Cancelled Microcytosis Cancelled Macrocytosis Cancelled Spherocytes Cancelled Pappenheimer Bodies Cancelled Sickle Cells Cancelled Target Cells Cancelled Tear Drop Cells Cancelled Ovalocytes Cancelled Stomatocytes Cancelled Hurst-Belzoni Bodies Cancelled Echinocytes Cancelled Acanthocytes (Spur) Cancelled Rouleaux Cancelled RBC Agglutinates Cancelled Schistocytes Cancelled RBC Morph Comment Cancelled Sezary Cell Cancelled PT 20.9 H (9.0-12.0) Seconds INR 2.2 H (0.9-1.1) APTT 28.6 (21.0-31.0) Seconds PTT Ratio 1.1 Sodium 135 L (136-145) mmol/L Potassium 3.4 L (3.5-5.1) mmol/L Chloride 100 (98-107) mmol/L Carbon Dioxide 25 (21-32) mmol/L Anion Gap 10.0 (3-11) BUN 18 (7-18) mg/dl Creatinine 1.02 (0.6-1.2) mg/dl Est Cr Clr Drug Dosing 38.3 ml/min Est GFR ( Amer) 56.9 Est GFR (Non-Af Amer) 49.1 BUN/Creatinine Ratio 17.4 (10-20) Glucose 109 H (70-99) mg/dl Calcium 9.1 (8.5-10.1) mg/dl Magnesium 2.1 (1.8-2.4) mg/dl Total Bilirubin 1.3 H (0.2-1) mg/dl AST 23 (15-37) U/L ALT 25 (12-78) U/L Alkaline Phosphatase 55 (45-117) U/L Troponin I < 0.015 (0-0.045) ng/ml Total Protein 6.6 (6.4-8.2) gm/dl Albumin 3.7 (3.4-5.0) gm/dl Globulin 2.9 (2.5-4.0) gm/dl Albumin/Globulin Ratio 1.3 (0.9-2) 10/18/18 Range/Units 20:48 WBC 13.14 H RBC 4.84 Hgb 16.2 H Hct 43.3 MCV 89.5 MCH 33.5 MCHC 37.4 H RDW Std Deviation 40.5 RDW Coeff of Brandon 12.4 Plt Count 155 MPV 9.9 Immature Gran % (Auto) 0.5 Neut % (Auto) 74.8 Lymph % (Auto) 16.4 [place] % (Auto) 7.8 Eos % (Auto) 0.5 Baso % (Auto) 0.0 Immature Gran # (Auto) 0.06 H Neut # (Auto) 9.83 H Lymph # (Auto) 2.16 [place] # (Auto) 1.03 H Eos # (Auto) 0.06 Baso # (Auto) 0.00 Absolute Nucleated RBC Nucleated RBC % (auto) Neutrophils % (Manual) Band Neutrophils % Lymphocytes % (Manual) Prolymphocyte % Reactive Lymphs % (Man) Monocytes % (Manual) Eosinophils % (Manual) Basophils % (Manual) Metamyelocytes % (Man) Myelocytes % (Man) Promyelocytes % (Man) Blast Cells % (Manual) Plasma Cell % (Manual) Other Cells % Nucleated RBC % Neutrophils # (Manual) Band Neutrophils # Total Absolute Neuts Lymphocytes # (Manual) Prolymphocyte # Reactive Lymphs # Total Abs Lymphocytes Monocytes # (Manual) Eosinophils # (Manual) Basophils # (Manual) Metamyelocytes # (Man) Myelocytes # (Manual) Promyelocytes # (Man) Blast Cells # (Man) Plasma Cell # (Manual) Other Cells # Nucleated RBCs # (Man) Hypersegmented Neuts Hyposegmented Neuts Hypogranular Neuts Large Granular Lymphs # Lrg Granular Lymphs Hairy Cells Smudge Cells Toxic Granulation Toxic Vacuolation Dohle Bodies Massiel Rods Platelet Estimate Hypogranular Platelets Clumped Platelets Giant Platelets Platelet Satelliting RBC Morphology Polychromasia Hypochromasia Poikilocytosis Basophilic Stippling Anisocytosis Microcytosis Macrocytosis Spherocytes Pappenheimer Bodies Sickle Cells Target Cells Tear Drop Cells Ovalocytes Stomatocytes Hurst-Belzoni Bodies Echinocytes Acanthocytes (Spur) Rouleaux RBC Agglutinates Schistocytes RBC Morph Comment Sezary Cell PT (9.0-12.0) Seconds INR (0.9-1.1) APTT (21.0-31.0) Seconds PTT Ratio Sodium (136-145) mmol/L Potassium (3.5-5.1) mmol/L Chloride (98-107) mmol/L Carbon Dioxide (21-32) mmol/L Anion Gap (3-11) BUN (7-18) mg/dl Creatinine (0.6-1.2) mg/dl Est Cr Clr Drug Dosing ml/min Est GFR ( Amer) Est GFR (Non-Af Amer) BUN/Creatinine Ratio (10-20) Glucose (70-99) mg/dl Calcium (8.5-10.1) mg/dl Magnesium (1.8-2.4) mg/dl Total Bilirubin (0.2-1) mg/dl AST (15-37) U/L ALT (12-78) U/L Alkaline Phosphatase (45-117) U/L Troponin I (0-0.045) ng/ml Total Protein (6.4-8.2) gm/dl Albumin (3.4-5.0) gm/dl Globulin (2.5-4.0) gm/dl Albumin/Globulin Ratio (0.9-2) Imaging Data Radiologist's Impression: Radiology results as stated below per my review and the radiologist's in terpretation: CT SCAN OF THE LUMBAR SPINE WITHOUT IV CONTRAST CLINICAL HISTORY: Fall. Low back pain. COMPARISON STUDY: No priors. TECHNIQUE: CT scan of the lumbar spine is performed from the lower thoracic spine to the sacrum. Images are reviewed in the axial, sagittal, and coronal planes. IV contrast was not administered for this examination. A dose lowering technique was utilized adhering to the principles of ALARA. CT DOSE: 521.03 mGy.cm FINDINGS: The skeletal structures are osteopenic. There is a moderate and acute burst type fracture of L4 with associated paravertebral edema. There are minimally retropulsed fragments by up to 3 mm. Vertebral body height is otherwise maintained throughout the lumbar spine. There is minimal retrolisthesis at L2-L3. Alignment is otherwise preserved. Hyperlordosis is noted. The transverse and spinous processes are intact. No lytic or blastic lesion is seen. There is no spondylolysis. Anterior osteophytes are seen throughout. There is mild/moderate disc space narrowing at L2-L3. The disc spaces are otherwise maintained. There is no evidence of large disc herniation or high-grade central canal stenosis by CT. Multilevel facet arthropathy is noted. The visualized sacrum and bony pelvis appear intact. The paraspinous soft tissues are normal as imaged. Advanced atherosclerotic calcification is noted in the abdominal aorta. A 4.3 cm cyst is partially imaged arising from the upper pole of the left kidney. IMPRESSION: 1. There is a burst type fracture of the L4 vertebral body with moderate loss of height, minimally retropulsed fragments, and associated paravertebral edema. 2. No additional fracture is identified. 3. Osteopenia and spondylotic change as above. Electronically signed by: Santiago Fernandez M.D. 10/18/2018 9:36 PM ECG Data Attestation: I personally reviewed and interpreted this ECG as follows: Indication: other (near syncope) Rate (beats per minute): 62 Rhythm: atrial fibrillation Findings: no PVC and no ST elevation Blood Pressure Blood Pressure Findings: Elevated blood pressure Blood Pressure Disposition: further management by hospitalist [facility] Narrative There is a mild leukocytosis, this could be consistent with infection or the stress of her situation. No anemia. No significant electrolyte abnormality, kidney failure or hepatitis. INR is therapeutic for someone on Coumadin. EKG shows atrial fibrillation, no acute ischemia. Cardiac enzyme testing x1 is not consistent with acute cardiac injury. The patient and family refused the chest x-ray and brain CT that were ordered. A lumbar spine CT was done, there is a L4 compression fracture which appears acute. Very mild retropulsion was seen. Clinically, there are no acute neurologic findings in the lower extremities. The patient received IV saline, she received IV Zofran for nausea, IV Tylenol for pain control. I spoke to the patient and her daughter. Given the new compression fracture, given the near syncopal event, given the fact that she just left the hospital several hours before this event occurred, a repeat hospital stay was felt warranted. Patient may require kyphoplasty, she may benefit from a brace. She may require rehab therapy. She will require some pain control. I spoke with case management, the on-call hospitalist was consulted. Impression & Plan Near syncope, Compression fracture of L4 vertebra, Elevated INR Discharge Plan Visit Data Chief Complaint: Syncope (Near Syncope) Stated Complaint: NEAR SYNCOPE ED Provider: Santiago Puri Discharge Problem: Near syncope, Compression fracture of L4 vertebra, Elevated INR Patient Disposition: Being Evaluated by Hospitalist Forms Stand Alone Forms: My [facility] [email or web address] Prescriptions Prescriptions: No Action warfarin 2.5 mg tablet 2.5 mg PO 5XWK RF: 0 atorvastatin 10 mg Tablet 10 mg PO HS RF: 0 warfarin 2.5 mg Tablet 1.25 mg PO 2XWK RF: 0 triamterene-hydrochlorothiazid 37.5-25 mg Tablet 1 tab PO DAILY RF: 0 metoprolol succinate 25 mg Tablet Extended Release 24 Hr 25 mg PO DAILY RF: 0 cholecalciferol (vitamin D3) 2,000 unit Capsule 2,000 units PO DAILY RF: 0 amlodipine 10 mg tablet 10 mg PO QAM 30 Days Qty: 30 RF: 0 losartan 25 mg tablet 25 mg PO QAM 30 Days Qty: 30 RF: 0 Referrals Referrals: Bette Pérez MD [Primary Care Provider] - Discharge Problem: Compression fracture of L4 vertebra Qualifiers: Encounter type: initial encounter Fracture type: closed Qualified Code(s): S32.040A - Wedge compression fracture of fourth lumbar vertebra, initial encounter for closed fracture The scribe's documentation has been prepared under my direction and personally reviewed by me in its entirety. I confirm that the note above accurately reflects all work, treatment, procedures, and medical decision making performed by me.
[2018-10-18 20:59] LABS: Eosinophils # (auto) 0.06 K/uL (0-0.5); Eosinophils % (auto) 0.5 %; Hematocrit (blood only) 43.3 % (37-47); Hemoglobin 16.2 g/dL (12.0-16.0); Immature Granulocytes # (auto) 0.06 K/uL (0.00-0.02); Immature Granulocytes % (auto) 0.5 %; Lymphocytes # (auto) 2.16 K/uL (1.2-3.4); Lymphocytes % (auto) 16.4 %; Mean Corpuscular Hgb Conc 37.4 g/dL (32-36); Mean Corpuscular Volume 89.5 fL (80-100); Mean Platelet Volume 9.9 fL (7.4-10.4); Monocytes # (auto) 1.03 K/uL (0.11-0.59); Monocytes % (auto) 7.8 %; Neutrophils # (auto) 9.83 K/uL (1.4-6.5); Neutrophils % (auto) 74.8 %; Platelet Count 155 K/uL (130-400); RDW Coefficient of Variation 12.4 % (11.5-14.5); RDW Standard Deviation 40.5 fL (36.4-46.3); Red Blood Count 4.84 M/uL (4.2-5.4); White Blood Count 13.14 K/uL (4.8-10.8)
[2018-10-18 21:10] LABS: INR 2.2 (0.9-1.1); Partial Thromboplastin Ratio 1.1; Partial Thromboplastin Time 28.6 Seconds (21.0-31.0); Prothrombin Time 20.9 Seconds (9.0-12.0)
[2018-10-18 21:25] LABS: Alanine Aminotransferase 25 U/L (12-78); Albumin Level 3.7 gm/dl (3.4-5.0); Aspartate Aminotransferase 23 U/L (15-37); BUN Creatinine Ratio 17.4 (10-20); Blood Urea Nitrogen 18 mg/dl (7-18); Calcium 9.1 mg/dl (8.5-10.1); Carbon Dioxide 25 mmol/L (21-32); Chloride 100 mmol/L (98-107); Creatinine Clr Calc Pharmacy 38.3 ml/min; Est GFR (African American) 56.9; Est GFR (Non-African American) 49.1; Glucose 109 mg/dl (70-99); Magnesium 2.1 mg/dl (1.8-2.4); Potassium 3.4 mmol/L (3.5-5.1); Sodium 135 mmol/L (136-145)
[2018-10-18 21:30] LABS: Albumin Globulin Ratio 1.3 (0.9-2); Alkaline Phosphatase 55 U/L (45-117); Bilirubin,Total 1.3 mg/dl (0.2-1); Globulin 2.9 gm/dl (2.5-4.0); Total Protein 6.6 gm/dl (6.4-8.2); Troponin I < 0.015 ng/ml (0-0.045)
--- NOTE | 2018-10-18 21:37 | CT Scan Report ---
CT SCAN OF THE LUMBAR SPINE WITHOUT IV CONTRAST CLINICAL HISTORY: Fall. Low back pain. COMPARISON STUDY: No priors. TECHNIQUE: CT scan of the lumbar spine is performed from the lower thoracic spine to the sacrum. Iona ges are reviewed in the axial, sagittal, and coronal planes. IV contrast was not administered for thi s examination. A dose lowering technique was utilized adhering to the principles of ALARA. CT DOSE: 521.03 mGy.cm FINDINGS: The skeletal structures are osteopenic. There is a moderate and acute burst type fracture o f L4 with associated paravertebral edema. There are minimally retropulsed fragments by up to 3 mm. Ve rtebral body height is otherwise maintained throughout the lumbar spine. There is minimal retrolisthe sis at L2-L3. Alignment is otherwise preserved. Hyperlordosis is noted. The transverse and spinous pr ocesses are intact. No lytic or blastic lesion is seen. There is no spondylolysis. Anterior osteophyt es are seen throughout. There is mild/moderate disc space narrowing at L2-L3. The disc spaces are oth erwise maintained. There is no evidence of large disc herniation or high-grade central canal stenosis by CT. Multilevel facet arthropathy is noted. The visualized sacrum and bony pelvis appear intact. T he paraspinous soft tissues are normal as imaged. Advanced atherosclerotic calcification is noted in the abdominal aorta. A 4.3 cm cyst is partially imaged arising from the upper pole of the left kidney . IMPRESSION: 1. There is a burst type fracture of the L4 vertebral body with moderate loss of height, minimally re tropulsed fragments, and associated paravertebral edema. 2. No additional fracture is identified. 3. Osteopenia and spondylotic change as above. Electronically signed by: Santiago Fernandez M.D. 10/18/2018 9:36 PM
[2018-10-19] MEDS ORDERED: MoRPHine SULFATE 2 MG/ML CARP IV PRN (01:30)
[2018-10-19] MEDS ORDERED: ONDANSETRON INJ 2 MG/ML 2 ML VIAL IV PRN (01:30)
[2018-10-19] MEDS ORDERED: OXYCODONE HCL IR 5 MG TAB (IMMEDIATE RELEASE) PO PRN (01:30)
[2018-10-19] MEDS ORDERED: NITROGLYCERIN SL 0.4 MG/TAB TAB SL PRN (01:30)
[2018-10-19] MEDS ORDERED: SODIUM CHLORIDE 0.9% 1000ML 1,000 ML IV SCH (01:30)
[2018-10-19] MEDS ORDERED: POTASSIUM CHLORIDE 20 MEQ TABCR PO STA (01:30)
--- NOTE | 2018-10-19 01:37 | History and Physical Report ---
DATE OF ADMISSION: 10/18/2018 CHIEF COMPLAINT: Status post fall. HISTORY OF PRESENT ILLNESS: This is an 88-year-old female with past medical history significant for chronic atrial fibrillation, on Coumadin, hypertension, hyperlipidemia, chronic kidney disease stage III and diastolic dysfunction, who was recently in the hospital for confusion thought to be from hypertensive urgency and blood pressure better controlled and got discharged today in the morning. She lives alone. She ambulates okay, but today her daughter was with her and she ate her supper , she felt like she needed to go to bathroom, she moved her bowels and when she tried to get up from the commode, she felt dizzy and she almost passed out and lost balance and fell onto back to the wall and started to have pain in her back and she was brought in here and imaging studies with CAT scan showing L4 burst fracture. She is complaining of pain in the back, while lying in bed, able to move her extremities. Denies any headache. No blurred vision. No sore throat. No difficulty swallowing. No chest pain. No shortness of breath. No cough. No fever. After falling down, she had nausea and vomiting, but she is okay now. No belly pain. Normal bowel movements. Normal bladder movements. Currently, resting comfortably and hemodynamically stable. Daughter is in the room. ALLERGIES: No known drug allergies. PAST MEDICAL HISTORY: As mentioned above. PAST SURGICAL HISTORY: History of hemorrhoidectomy and history of tonsillectomy. FAMILY HISTORY: Significant for father with hyperlipidemia. Mother with hypertension. SOCIAL HISTORY: She lives alone. No smoking. Alcohol occasional. No drug use. MEDICATIONS: The patient is on amlodipine 10 mg p.o. daily, atorvastatin 10 mg p.o. at bedtime, vitamin D 2000 units p.o. daily, losartan 25 mg p.o. daily, metoprolol succinate 25 mg p.o. daily, triamterene hydrochlorothiazide 1 tablet daily and Coumadin as directed. REVIEW OF SYMPTOMS: As per HPI. Rest of review of symptoms is negative. PHYSICAL EXAMINATION: GENERAL: The patient is of moderate build, not in acute distress. VITAL SIGNS: Temperature 36.5, pulse 70, respiratory rate 21, blood pressure 156/82 and oxygen 99% on room air. HEENT: No pallor. No icterus. Pupils are equal, round and reactive to light. NECK: No neck masses. No carotid bruits. CARDIOVASCULAR: S1, S2 heard. Regular rate and rhythm. No murmur. No gallop. RESPIRATORY SYSTEM: Normal AP diameter. No accessory muscle use. No wheezing. No crackles. ABDOMEN: Soft. Bowel sounds present. Nontender. No distention. CENTRAL NERVOUS SYSTEM: Cranial nerves II through XII are grossly intact. Nonfocal. Musculoskeletal SLR Negative EXTREMITIES: No edema. No erythema. LABORATORY DATA: WBC 7.4, hemoglobin 14.3, hematocrit 39.7 and platelets 155. PT 20.5. INR 2.2. APTT 28.6. Sodium 134, potassium 3.4, chloride 100, bicarbonate 25, BUN 18, creatinine 1.02, serum glucose 109, calcium 8.4, magnesium 2.1, total bilirubin 1.3, AST 23, ALT 25 and alkaline phosphatase 55. Troponin I less than 0.015. Lumbar spine CT shows burst stable fracture of the L4 vertebra with moderate loss of height, minimally retropulsed fragments and associated paravertebral edema. Electrocardiogram, atrial fibrillation with a rate of 62, no acute ST-T wave seen. ASSESSMENT AND PLAN: This is an 88-year-old female who presents with presyncope, fall and burst fracture. 1. Presyncope, while sitting on the commode when getting up, she felt dizzy, but did not pass out. It could be orthostatic hypotension. It could be from new blood pressure pills. We will observe on Med/Surg Telemetry, check orthostatic blood pressures and closely monitor. 2. Status post fall and L4 burst fracture, pain control. We will consult Orthopedics for possible brace. We will keep n.p.o. after midnight if kyphoplasty planned. Hold Coumadin for the procedure. Pain control and physical therapy and occupational therapy as per Orthopedics recommendations. 3. History of atrial fibrillation, continue her Toprol-XL. Hold Coumadin for any procedures. INR is 2.2 today. 4. Hypertension, recently was admitted for hypertensive urgency and was discharged today after control of blood pressure with the addition of amlodipine and losartan, which we will continue and also continue home medication Toprol XL and triamterene hydrochlorothiazide. We will monitor blood pressure while she is in the hospital. 5. Hyperlipidemia, continue statin. 6. Chronic diastolic chf. Stable. Monitor for volume overload. 7. Chronic kidney disease stage III, baseline creatinine around 0.9, creatinine 1.02, getting gentle fluids . follow labs. 8. Hypokalemia, potassium 3.4. We will replace potassium. 9. Deep venous thrombosis prophylaxis, INR is 2.2. 10. Disposition, admit to Med/Surg Tele. Physical therapy and occupational therapy. Social service to with discharge planning. The patient may need rehab placement. 11. Code status, full code. MTDD
[2018-10-19 06:36] LABS: Basophils # (auto) 0.01 K/uL (0-0.2); Basophils % (auto) 0.1 %; Eosinophils # (auto) 0.03 K/uL (0-0.5); Eosinophils % (auto) 0.4 %; Hematocrit (blood only) 39.7 % (37-47); Hemoglobin 14.3 g/dL (12.0-16.0); Immature Granulocytes # (auto) 0.02 K/uL (0.00-0.02); Immature Granulocytes % (auto) 0.3 %; Lymphocytes # (auto) 1.71 K/uL (1.2-3.4); Lymphocytes % (auto) 22.9 %; Mean Corpuscular Volume 89.6 fL (80-100); Mean Platelet Volume 9.9 fL (7.4-10.4); Neutrophils # (auto) 5.09 K/uL (1.4-6.5); Neutrophils % (auto) 68.3 %; Platelet Count 159 K/uL (130-400); RDW Coefficient of Variation 12.4 % (11.5-14.5); RDW Standard Deviation 40.7 fL (36.4-46.3); Red Blood Count 4.43 M/uL (4.2-5.4); White Blood Count 7.46 K/uL (4.8-10.8)
[2018-10-19 06:48] LABS: INR 2.1 (0.9-1.1); Prothrombin Time 20.5 Seconds (9.0-12.0)
[2018-10-19 07:13] LABS: BUN Creatinine Ratio 16.8 (10-20); Calcium 8.4 mg/dl (8.5-10.1); Creatinine Clr Calc Pharmacy 45.9 ml/min; Est GFR (African American) 70.9; Est GFR (Non-African American) 61.2; Magnesium 1.9 mg/dl (1.8-2.4); Potassium 3.7 mmol/L (3.5-5.1)
[2018-10-19] MEDS ORDERED: LOSARTAN POTASSIUM 25 MG TAB PO SCH (09:00)
[2018-10-19] MEDS ORDERED: TRIAMTERENE/HCTZ 37.5/25MG TAB PO SCH (09:00)
[2018-10-19] MEDS: AMLODIPINE BESYLATE 5 MG TAB PO SCH (09:27)
[2018-10-19] MEDS: CHOLECALCIFEROL 1,000 UNITS TAB PO SCH (09:27)
[2018-10-19] MEDS: METOPROLOL SUCC 25MG EXT REL TAB PO SCH (09:27)
--- NOTE | 2018-10-19 11:09 | Orthopedic Consultation ---
Date of Consultation October 19, 2018 Assessment & Plan (1) Compression fracture of L4 vertebra: At this time we will order her an LSO brace. This should be worn when out of bed and ambulating. She certainly would not need have this while in bed. She be an excellent candidate for rehab. We will watch her closely. If there is any change or decline neurologically she may require surgical intervention however due to her age and medical history were clearly trying to avoid this. Present on Admission?: Yes History of Present Illness Reason for Consultation: Back pain Attending Physician: Rick Gallego MD History of Present Illness This is a very pleasant 88-year-old female that presents the hospital last evening with back pain status post fall at home. CAT scan does show evidence of a burst fracture of L4. On our discussion today she states her back pain is improved since her admission. She was able to ambulate to the bathroom and back to her bed without difficulty. She denies any perineal numbness bowel bladder changes. She denies any numbness or tingling or pain in lower extremities. Allergies Allergy/AdvReac Type Severity Reaction Status Date / Time No Known Allergies Allergy Verified 10/18/18 22:34 Home Medications Home Medications Medication Instructions Recorded Confirmed Type atorvastatin 10 mg PO HS 10/16/18 10/18/18 History cholecalciferol (vitamin D3) 2,000 units PO DAILY 10/16/18 10/18/18 History metoprolol succinate 25 mg PO DAILY 10/16/18 10/18/18 History triamterene-hydrochlorothiazid 1 tab PO DAILY 10/16/18 10/18/18 History warfarin 1.25 mg PO 2XWK 10/16/18 10/18/18 History amlodipine 10 mg PO QAM 30 Days #30 tab 10/18/18 10/18/18 Rx losartan 25 mg PO QAM 30 Days #30 tab 10/18/18 10/18/18 Rx warfarin 2.5 mg PO 5XWK 10/18/18 10/18/18 History Patient History Medical History Dyslipidemia (Chronic) Diastolic dysfunction (Chronic) CKD (chronic kidney disease), stage III (Chronic) Atrial fibrillation (Chronic 05/25/14) HTN (hypertension) (Chronic) Pneumonia (Resolved) Surgical History History of hemorrhoidectomy (Chronic) Hx of tonsillectomy (Chronic) Family History Father Dyslipidemia Mother Hypertension Social History Preferred Language: Filipino Communication Ability: Effective Fluxer Required: Yes Beliefs That Will Affect Care: None Current Living Situation: Alone Other Information That Helps Us Care for You: No Feels Safe at Home: Yes Safety Concerns: Feels Safe At This Time Smoking Status: Never smoker Hx Alcohol Use: No Hx Substance Use: No Physical Exam Physical Exam: On exam she appears quite comfortable. She is good strength testing bilateral plantar flexion dorsi flexion quadriceps. Sensory symmetric and intact. Results & Data Vital Signs (Past 12 Hours) Vital Signs Temp Pulse Pulse Resp BP BP Pulse Ox 10/19/18 07:20 37.0 C 59 L 18 116/66 93 10/19/18 05:25 74 10/19/18 04:05 36.4 C L 70 14 138/75 97 10/19/18 00:30 36.4 C L 80 16 161/83 H 10/19/18 00:02 74 19 165/92 H 99 (1) Compression fracture of L4 vertebra Encounter type: initial encounter Fracture type: closed Qualified Code(s): S32.040A - Wedge compression fracture of fourth lumbar vertebra, initial encounter for closed fracture
--- NOTE | 2018-10-19 13:31 | Hospitalist Progress Note ---
Date of Service October 19, 2018 Assessment & Plan (1) Compression fracture of L4 vertebra: -secondary to fall -orthopedic service does not recommend surgery at this time, recommend back brace -will have PT and OT assess patient once back brace is placed -normal vitamin D levels Presyncope at home -was recently started on additional blood pressure medications because of previous admission for Hypertensive urgency and Hypertensive encephalopathy -has received IV fluids Hypertension -continue home dose triamterene-HCTZ -continue amlodipine 10 mg daily -hold off losartan for now Hypokalemia -mild hypokalemia on admission as 3.4 and is resolved with potassium supplementation atrial fibrillation -chronic atrial fibrillation -was continued on metoprolol succinate 25 mg daily -continue home dose coumadin dyslipidemia -continue statin Diastolic dysfunction: Hx diastolic dysfunction -Current euvolemic CKD (chronic kidney disease), stage III: -renal function is stable DVT Prophylaxis -On Coumadin Full Code Subjective Patient seen and examined today while laying on the bed. she was able to move the extremities while laying flat without acute worsening discomfort. She does report of back pain. Patient was seen by orthopedic surgery and recommend non surgical back brace. Physical Exam Eyes: PERRL, conjunctivae normal, anicteric sclerae EOM intact bilaterally ENMT: external ear and nose normal, oropharynx normal Neck: trachea midline, no thyromegaly normal visual inspection Respiratory: normal respiratory effort, lungs clear to auscultation Cardiovascular: Rate/Rhythm: + bradycardic and + irregularly irregular Gastrointestinal (Abdomen): normal bowel sounds, soft, nontender, no hepatosplenomegaly Musculoskeletal: Head/Neck/Chest: normocephalic and head atraumatic back pain Neurologic: PERRL, EOMI, accommodation nl, no face palsy, no dysarthria Psychiatric: A+Ox3, euthymic affect Results & Data Vital Signs (Past 12 Hours) Vital Signs Temp Pulse Pulse Pulse Resp BP Pulse Ox 10/19/18 11:56 37.1 C 62 18 161/73 H 96 10/19/18 07:20 37.0 C 59 L 18 116/66 93 10/19/18 05:25 74 10/19/18 04:05 36.4 C L 70 14 138/75 97 (1) Compression fracture of L4 vertebra Encounter type: initial encounter Fracture type: closed Qualified Code(s): S32.040A - Wedge compression fracture of fourth lumbar vertebra, initial encounter for closed fracture
[2018-10-19] MEDS ORDERED: POLYETHYLENE (MIRALAX) 17 GM PACK PO PRN (13:38)
[2018-10-19] MEDS ORDERED: MAGNESIUM SULFATE / D5W 1 GM/100 ML BAG IV SCH (14:15)
[2018-10-19] MEDS: SENNA 8.6 MG TAB PO SCH (14:44)
[2018-10-19] MEDS: TRIAMTERENE/HCTZ 37.5/25MG TAB PO SCH (14:44)
[2018-10-19] MEDS: WARFARIN SOD 2.5 MG TAB PO SCH (16:51)
[2018-10-19] MEDS: ATORVASTATIN 10 MG TAB PO SCH (21:07)
[2018-10-19] MEDS: ACETAMINOPHEN 325 MG TAB PO PRN (22:31)
[2018-10-20 07:24] LABS: Basophils # (auto) 0.02 K/uL (0-0.2); Basophils % (auto) 0.2 %; Eosinophils # (auto) 0.25 K/uL (0-0.5); Hematocrit (blood only) 40.1 % (37-47); Hemoglobin 14.8 g/dL (12.0-16.0); Immature Granulocytes # (auto) 0.01 K/uL (0.00-0.02); Immature Granulocytes % (auto) 0.1 %; Lymphocytes # (auto) 3.29 K/uL (1.2-3.4); Lymphocytes % (auto) 39.2 %; Mean Corpuscular Hgb Conc 36.9 g/dL (32-36); Mean Corpuscular Volume 89.5 fL (80-100); Mean Platelet Volume 9.8 fL (7.4-10.4); Monocytes # (auto) 0.81 K/uL (0.11-0.59); Monocytes % (auto) 9.6 %; Neutrophils # (auto) 4.02 K/uL (1.4-6.5); Neutrophils % (auto) 47.9 %; Platelet Count 157 K/uL (130-400); RDW Coefficient of Variation 12.3 % (11.5-14.5); RDW Standard Deviation 40.1 fL (36.4-46.3); Red Blood Count 4.48 M/uL (4.2-5.4)
[2018-10-20 07:36] LABS: Prothrombin Time 19.3 Seconds (9.0-12.0)
[2018-10-20 07:55] LABS: Albumin Level 3.4 gm/dl (3.4-5.0); BUN Creatinine Ratio 15.3 (10-20); Calcium 8.5 mg/dl (8.5-10.1); Creatinine Clr Calc Pharmacy 50.9 ml/min; Est GFR (African American) 83.8; Est GFR (Non-African American) 72.3; Potassium 3.4 mmol/L (3.5-5.1)
[2018-10-20 07:59] LABS: Albumin Globulin Ratio 1.2 (0.9-2); Bilirubin,Total 1.9 mg/dl (0.2-1); Globulin 2.9 gm/dl (2.5-4.0); Total Protein 6.3 gm/dl (6.4-8.2)
[2018-10-20] MEDS: SENNA 8.6 MG TAB PO SCH (08:40)
[2018-10-20] MEDS: TRIAMTERENE/HCTZ 37.5/25MG TAB PO SCH (08:40)
[2018-10-20] MEDS: CHOLECALCIFEROL 1,000 UNITS TAB PO SCH (09:03)
[2018-10-20] MEDS: METOPROLOL SUCC 25MG EXT REL TAB PO SCH (09:03)
[2018-10-20] MEDS: AMLODIPINE BESYLATE 5 MG TAB PO SCH (09:03)
[2018-10-20] MEDS: ACETAMINOPHEN 325 MG TAB PO PRN ×2 (09:04→19:47)
--- NOTE | 2018-10-20 11:48 | Hospitalist Progress Note ---
Date of Service October 20, 2018 Assessment & Plan (1) Compression fracture of L4 vertebra: -secondary to fall -orthopedic service does not recommend surgery at this time, recommend back brace -orthotics consult placed for the LSP back brace -PT and OT assess patient once back brace is placed -normal vitamin D levels Presyncope at home -was recently started on additional blood pressure medications because of previous admission for Hypertensive urgency and Hypertensive encephalopathy -has received IV fluids on this admission -currently off IV fluids Hypertension -continue home dose triamterene-HCTZ -continue amlodipine 10 mg daily -hold off losartan for now Hypokalemia -likely to diuretic blood pressure medication -mild hypokalemia on admission as 3.4 and went up to 3.7 and now again is 3.4 on 10/20/18 -will give 1 time stat dose of 40 meq oral potassium and have scheduled potassi um 10 meq daily atrial fibrillation -chronic atrial fibrillation -was continued on metoprolol succinate 25 mg daily -continue home dose coumadin dyslipidemia -continue statin Diastolic dysfunction: Hx diastolic dysfunction -Current euvolemic CKD (chronic kidney disease), stage III: -renal function is stable DVT Prophylaxis -On Coumadin, INR is 2 Full Code Subjective Patient reports back pain with movements. when laying on the bed, she feels comfortable. patient has not had the LSO back brace yet as recommended by orthopedics. patient able to move all extremities while laying flat on the bed. she was able to turn over on her own power for physical exam. no vomiting. no chest pain. no lightheadedness Physical Exam Eyes: PERRL, conjunctivae normal, anicteric sclerae EOM intact bilaterally ENMT: external ear and nose normal, oropharynx normal Neck: trachea midline, no thyromegaly normal visual inspection Respiratory: normal respiratory effort, lungs clear to auscultation Cardiovascular: Rate/Rhythm: + bradycardic and + irregularly irregular Gastrointestinal (Abdomen): normal bowel sounds, soft, nontender, no hepatosplenomegaly Musculoskeletal: Head/Neck/Chest: normocephalic and head atraumatic tenderness of low back Neurologic: PERRL, EOMI, accommodation nl, no face palsy, no dysarthria Psychiatric: A+Ox3, euthymic affect Results & Data Vital Signs (Past 12 Hours) Vital Signs Temp Pulse Pulse Resp BP Pulse Ox 10/20/18 11:30 58 L 10/20/18 07:25 36.7 C 61 18 156/81 H 96 10/20/18 03:59 36.7 C 61 18 164/83 H 94 10/20/18 00:00 37.0 C 72 18 148/73 H 99 (1) Compression fracture of L4 vertebra Encounter type: initial encounter Fracture type: closed Qualified Code(s): S32.040A - Wedge compression fracture of fourth lumbar vertebra, initial encounter for closed fracture
[2018-10-20] MEDS ORDERED: POTASSIUM CHLORIDE 20 MEQ TABCR PO STA (12:04)
[2018-10-20] MEDS: POTASSIUM CHLORIDE 10 MEQ TABCR PO SCH (12:39)
[2018-10-20] MEDS: WARFARIN SOD 2.5 MG TAB PO SCH (16:13)
[2018-10-20] MEDS: ATORVASTATIN 10 MG TAB PO SCH (19:48)
[2018-10-21 06:22] LABS: INR 2.1 (0.9-1.1); Prothrombin Time 20.2 Seconds (9.0-12.0)
[2018-10-21] MEDS: POTASSIUM CHLORIDE 10 MEQ TABCR PO SCH (07:36)
[2018-10-21] MEDS: METOPROLOL SUCC 25MG EXT REL TAB PO SCH (07:36)
[2018-10-21] MEDS: CHOLECALCIFEROL 1,000 UNITS TAB PO SCH (07:36)
[2018-10-21] MEDS: AMLODIPINE BESYLATE 5 MG TAB PO SCH (07:36)
[2018-10-21] MEDS: SENNA 8.6 MG TAB PO SCH (07:36)
[2018-10-21] MEDS: TRIAMTERENE/HCTZ 37.5/25MG TAB PO SCH (07:36)
[2018-10-21] MEDS: ACETAMINOPHEN 325 MG TAB PO PRN ×2 (07:44→20:39)
[2018-10-21] MEDS: WARFARIN SOD 2.5 MG TAB PO SCH (15:58)
--- NOTE | 2018-10-21 16:20 | Hospitalist Progress Note ---
Date of Service October 21, 2018 Assessment & Plan (1) Compression fracture of L4 vertebra: -secondary to fall -normal vitamin D levels -orthopedic service does not recommend surgery at this time, recommend back brace -patient has received the LSO back brace and patient doing PT and OT evaluations -case management applying for physical therapy inpatient facilities Presyncope at home -was recently started on additional blood pressure medications because of previous admission for Hypertensive urgency and Hypertensive encephalopathy -has received IV fluids on this admission -currently off IV fluids Hypertension -continue home dose triamterene-HCTZ -continue amlodipine 10 mg daily -hold off losartan for now Hypokalemia -likely to diuretic blood pressure medication -mild hypokalemia on admission as 3.4 and went up to 3.7 with potassium replacements and is 3.4 on 10/20/18 -patient is on daily potassium supplements atrial fibrillation -chronic atrial fibrillation -was continued on metoprolol succinate 25 mg daily -continue home dose coumadin dyslipidemia -continue statin Diastolic dysfunction: Hx diastolic dysfunction -Current euvolemic CKD (chronic kidney disease), stage III: -renal function is stable DVT Prophylaxis -On Coumadin Full Code Subjective Patient was using the back brace today and was able to do some therapy. She is still having trouble on her own to get up off the bed by herself. Even when she is asked to turn over, it takes quite a while for her to manipulate into turning over for posterior lung auscultation. Patient reports back pain is present but tolerable. denies chest pain or shortness of breath. denies headache. denies dizziness. no vomiting Physical Exam Eyes: PERRL, conjunctivae normal, anicteric sclerae EOM intact bilaterally ENMT: external ear and nose normal, oropharynx normal Neck: trachea midline, no thyromegaly normal visual inspection Respiratory: normal respiratory effort, lungs clear to auscultation Cardiovascular: Rate/Rhythm: regular rate and + irregularly irregular Gastrointestinal (Abdomen): normal bowel sounds, soft, nontender, no hepatosplenomegaly Musculoskeletal: Head/Neck/Chest: normocephalic and head atraumatic Neurologic: PERRL, EOMI, accommodation nl, no face palsy, no dysarthria Psychiatric: A+Ox3, euthymic affect Results & Data Vital Signs (Past 12 Hours) Vital Signs Temp Pulse Pulse Resp BP BP Pulse Ox 10/21/18 15:21 36.5 C 82 16 165/92 H 97 10/21/18 11:08 36.5 C 60 16 121/67 95 10/21/18 08:00 62 10/21/18 07:54 36.8 C 65 16 164/67 H 96 10/21/18 07:37 74 10/21/18 05:00 36.8 C 53 L 18 154/83 H 95 (1) Compression fracture of L4 vertebra Encounter type: initial encounter Fracture type: closed Qualified Code(s): S32.040A - Wedge compression fracture of fourth lumbar vertebra, initial encounter for closed fracture
[2018-10-21] MEDS: ATORVASTATIN 10 MG TAB PO SCH (20:39)
[2018-10-22 04:41] LABS: Appearance Urine Cloudy (Clear); Bacteria Urine Automated Negative (Negative); Bilirubin Urine Negative (Negative); Blood Urine Negative (Negative); Color Urine Yellow; Epithelial Cell Urine Auto >30 /lpf (0-5); Glucose Urine UA Negative (Negative); Ketones Urine Negative (Negative); Leukocyte Esterase Urine 3+ (Negative); Nitrite Urine Negative (Negative); Protein Urine Negative (Negative); RBC Urine Automated 0-4 /hpf (0-4); Specific Gravity Urine 1.014 (1.000-1.030); Urobilinogen Urine Negative (Negative); WBC Urine Automated >30 /hpf (0-5); pH Urine 6.5 (4.5-7.5)
[2018-10-22 07:25] LABS: INR 2.4 (0.9-1.1)
[2018-10-22 07:46] LABS: BUN Creatinine Ratio 17.1 (10-20); Calcium 8.7 mg/dl (8.5-10.1); Creatinine Clr Calc Pharmacy 54.8 ml/min; Est GFR (African American) 90.1; Est GFR (Non-African American) 77.7; Potassium 3.2 mmol/L (3.5-5.1)
[2018-10-22] MEDS: AMLODIPINE BESYLATE 5 MG TAB PO SCH (07:48)
[2018-10-22] MEDS: CHOLECALCIFEROL 1,000 UNITS TAB PO SCH (07:48)
[2018-10-22] MEDS: TRIAMTERENE/HCTZ 37.5/25MG TAB PO SCH (07:48)
[2018-10-22] MEDS: POTASSIUM CHLORIDE 10 MEQ TABCR PO SCH (07:48)
[2018-10-22] MEDS: SENNA 8.6 MG TAB PO SCH (07:48)
[2018-10-22] MEDS: METOPROLOL SUCC 25MG EXT REL TAB PO SCH (07:48)
--- NOTE | 2018-10-22 15:28 | Hospitalist Progress Note ---
Date of Service October 22, 2018 Assessment & Plan (1) Compression fracture of L4 vertebra: -secondary to fall -normal vitamin D levels -orthopedic service does not recommend surgery at this time, recommend back brace -patient has received the LSO back brace and patient doing PT and OT evaluations -case management applying for physical therapy inpatient facilities Presyncope at home -was recently started on additional blood pressure medications because of previous admission for Hypertensive urgency and Hypertensive encephalopathy -has received IV fluids on this admission -currently off IV fluids Hypertension -continue home dose triamterene-HCTZ -continue amlodipine 10 mg daily -hold off losartan for now Hypokalemia -likely to diuretic blood pressure medication -mild hypokalemia on admission as 3.4 and went up to 3.7 with potassium replacements and is 3.4 on 10/20/18 -patient is on daily potassium supplements 10 meq daily -potassium is 3.2 on 10/22/18 and will give additional potassium 40 meq and IV potassium 10 meq x 2 atrial fibrillation -chronic atrial fibrillation -was continued on metoprolol succinate 25 mg daily -continue home dose coumadin dyslipidemia -continue statin Diastolic dysfunction: Hx diastolic dysfunction -Current euvolemic CKD (chronic kidney disease), stage III: -renal function is stable DVT Prophylaxis -On Coumadin Full Code Subjective Patient generally on the bed today. she is awaiting for supportive employment case manager to obtain the physical rehabilitation facility so that she can continue rehab with the back brace. So far there is no news from the supportive employment case manager. Back pain appears controlled. Patient denies chest or abdominal pain. no shortness of breath. no lightheadedness Physical Exam Eyes: PERRL, conjunctivae normal, anicteric sclerae EOM intact bilaterally ENMT: external ear and nose normal, oropharynx normal Neck: trachea midline, no thyromegaly normal visual inspection Respiratory: normal respiratory effort, lungs clear to auscultation Cardiovascular: Rate/Rhythm: regular rate and + irregularly irregular Gastrointestinal (Abdomen): normal bowel sounds, soft, nontender, no hepatosplenomegaly Musculoskeletal: Head/Neck/Chest: normocephalic and head atraumatic Neurologic: PERRL, EOMI, accommodation nl, no face palsy, no dysarthria Psychiatric: A+Ox3, euthymic affect Results & Data Vital Signs (Past 12 Hours) Vital Signs Temp Pulse Pulse Resp BP BP Pulse Ox 10/22/18 11:42 36.7 C 70 20 145/76 H 97 10/22/18 08:00 67 10/22/18 07:50 36.8 C 55 L 20 130/70 90 10/22/18 04:00 36.5 C 59 L 21 132/71 95 (1) Compression fracture of L4 vertebra Encounter type: initial encounter Fracture type: closed Qualified Code(s): S32.040A - Wedge compression fracture of fourth lumbar vertebra, initial encounter for closed fracture
[2018-10-22] MEDS ORDERED: POTASSIUM CHLORIDE 20 MEQ TABCR PO STA (15:29)
[2018-10-22] MEDS: WARFARIN SOD 2.5 MG TAB PO SCH (15:30)
[2018-10-22] MEDS: POTASSIUM CHLORIDE / WTR 10 MEQ/100 ML PLCT IV SCH ×2 (17:09→18:45)
[2018-10-22] MEDS: ATORVASTATIN 10 MG TAB PO SCH (20:25)
[2018-10-22] MEDS: ACETAMINOPHEN 325 MG TAB PO PRN (22:47)
[2018-10-23 06:43] LABS: INR 2.4 (0.9-1.1); Prothrombin Time 22.7 Seconds (9.0-12.0)
[2018-10-23 07:05] LABS: BUN Creatinine Ratio 15.4 (10-20); Calcium 8.6 mg/dl (8.5-10.1); Creatinine Clr Calc Pharmacy 58.8 ml/min; Est GFR (African American) 92.3; Est GFR (Non-African American) 79.7; Magnesium 1.9 mg/dl (1.8-2.4); Potassium 3.6 mmol/L (3.5-5.1)
[2018-10-23] MEDS: POTASSIUM CHLORIDE 10 MEQ TABCR PO SCH (09:32)
[2018-10-23] MEDS: AMLODIPINE BESYLATE 5 MG TAB PO SCH (09:33)
[2018-10-23] MEDS: SENNA 8.6 MG TAB PO SCH (09:33)
[2018-10-23] MEDS: TRIAMTERENE/HCTZ 37.5/25MG TAB PO SCH (09:33)
[2018-10-23] MEDS: CHOLECALCIFEROL 1,000 UNITS TAB PO SCH (09:34)
[2018-10-23] MEDS: METOPROLOL SUCC 25MG EXT REL TAB PO SCH (09:35)
[2018-10-23] MEDS: ACETAMINOPHEN 325 MG TAB PO PRN ×2 (11:32→20:17)
--- NOTE | 2018-10-23 14:47 | Hospitalist Progress Note ---
Date of Service October 23, 2018 Assessment & Plan (1) Compression fracture of L4 vertebra: -secondary to fall -orthopedic service does not recommend surgery at this time, recommend back brace -patient has received the LSO back brace -PRN tramadol -Pain Seems to be improving gradually -PT OT recommending rehab placement -integrated marketing manager on board Presyncope at home -was recently started on additional blood pressure medications because of previous admission for Hypertensive urgency and Hypertensive encephalopathy - Denies recurrence while admitted - Monitor blood pressure Hypertension -continue home dose triamterene-HCTZ -continue amlodipine 10 mg daily -hold off losartan for now Monitor blood pressure trend If not at goal, may need low-dose losartan Hypokalemia -likely to diuretic blood pressure medication -mild hypokalemia on admission as 3.4 and went up to 3.7 with potassium replacements and is 3.4 on 10/20/18 -patient is on daily potassium supplements 10 meq daily Potassium 3.6 atrial fibrillation -chronic atrial fibrillation -was continued on metoprolol succinate 25 mg daily -INR 2.4, continue home dose coumadin dyslipidemia -continue statin Diastolic dysfunction: Hx diastolic dysfunction -Current euvolemic CKD (chronic kidney disease), stage III: -renal function is stable DVT Prophylaxis -On Coumadin Full Code Disposition Awaiting acceptance to rehab facility Subjective Follow-up for L4 compression fractures Seen resting in bed, comfortable States low back pain is somewhat improved compared to yesterday Able to turn with less degree of pain today Denies lower extremity weakness or numbness No other symptoms Review of Systems Review of Systems: All systems reviewed & are unremarkable except as noted in HPI & below Physical Exam Physical Exam: General- oriented x 3, not in distress, speaks in sentences with no effort or accessory muscle use Eyes- anicteric Neck- no JVD Lungs- clear breath sounds bilaterally, no rales/wheezes Heart- normal rate, regular rhythm; no murmurs Abdomen- normal bowel sounds, nondistended, soft, nontender Low back-no tenderness, edema, hematoma Extremities- no pretibial edema, no calf tenderness Neuro- alert, oriented x 3; no gross focal neurologic deficits Skin- warm & dry Results & Data Vital Signs (Past 12 Hours) Vital Signs Temp Pulse Resp BP Pulse Ox 10/23/18 11:17 36.6 C 64 20 157/77 H 97 10/23/18 09:31 68 10/23/18 07:51 36.5 C 54 L 20 161/78 H 97 10/23/18 04:00 36.7 C 75 18 127/78 95 Laboratory Results Laboratory Results - last 24 hr 10/23/18 10/23/18 06:03 06:03 PT 22.7 H INR 2.4 H Sodium 136 Potassium 3.6 Chloride 103 Carbon Dioxide 27 Anion Gap 6.0 BUN 10 Creatinine 0.64 Est Cr Clr Drug Dosing 58.8 Est GFR ( Amer) 92.3 Est GFR (Non-Af Amer) 79.7 BUN/Creatinine Ratio 15.4 Glucose 82 Calcium 8.6 Magnesium 1.9 (1) Compression fracture of L4 vertebra Encounter type: initial encounter Fracture type: closed Qualified Code(s): S32.040A - Wedge compression fracture of fourth lumbar vertebra, initial encounter for closed fracture
[2018-10-23] MEDS: WARFARIN SOD 2.5 MG TAB PO SCH (16:35)
[2018-10-23] MEDS: ATORVASTATIN 10 MG TAB PO SCH (20:17)
[2018-10-24] MEDS: POTASSIUM CHLORIDE 10 MEQ TABCR PO SCH (09:12)
[2018-10-24] MEDS: SENNA 8.6 MG TAB PO SCH (09:13)
[2018-10-24] MEDS: AMLODIPINE BESYLATE 5 MG TAB PO SCH (09:13)
[2018-10-24] MEDS: CHOLECALCIFEROL 1,000 UNITS TAB PO SCH (09:14)
[2018-10-24] MEDS: METOPROLOL SUCC 25MG EXT REL TAB PO SCH (09:14)
[2018-10-24] MEDS: TRIAMTERENE/HCTZ 37.5/25MG TAB PO SCH (10:05)
--- NOTE | 2018-10-24 13:24 | Hospitalist Progress Note ---
Date of Service October 24, 2018 Assessment & Plan (1) Compression fracture of L4 vertebra: -secondary to fall -orthopedic service does not recommend surgery at this time, recommend back brace -patient has received the LSO back brace --> This should be worn when out of bed and ambulating. -PRN tramadol -Pain improving daily -PT OT recommending rehab placement -ems manager on board patient to be transitioned to [facility] today ff up with Dr. Silvano Hammond- Ortho spine- in 2 weeks Presyncope at home - likely secondary to Losartan that was recently added Losartan discontinued - Denies recurrence of presyncope while admitted - Monitor blood pressure while offf Losartan Hypertension -continue home dose triamterene-HCTZ -continue amlodipine 10 mg daily -hold off losartan for now Monitor blood pressure trend Hypokalemia -likely diue to diuretic blood pressure medication -mild hypokalemia on admission as 3.4 and went up to 3.7 with potassium replacements and is 3.4 on 10/20/18 - increase potassium to 20meq po daily - repeat K in 2-3 days atrial fibrillation -chronic atrial fibrillation -was continued on metoprolol succinate 25 mg daily -INR 2.4, continue home dose coumadin dyslipidemia -continue statin Diastolic dysfunction: Hx diastolic dysfunction -Current euvolemic CKD (chronic kidney disease), stage III: -renal function is stable DVT Prophylaxis -On Coumadin Full Code Disposition d/c to [facility] ff up with PCP 1 week after discharge ff up with Ortho Spine Dr. Silvano Hammond in 2 weeks Subjective ff up for L4 compression fracture seen sitting up in bed comfortable in good spirits states she ambulated in the halls today, had to be take small steps to avoid back pain denies leg weakness/numbness no chest pain, dyspnea, palpitations, dizziness no others symptoms Review of Systems Review of Systems: All systems reviewed & are unremarkable except as noted in HPI & below Physical Exam Physical Exam: General- oriented x 3, not in distress, speaks in sentences with no effort or accessory muscle use Eyes- anicteric Neck- no JVD Lungs- clear BS BL no rales/wheezing Heart- normal rate, regular rhythm; no murmurs Abdomen- normal bowel sounds, nondistended, soft, nontender Extremities- no pretibial edema, no calf tenderness Neuro- alert, oriented x 3; no gross focal neurologic deficits Skin- warm & dry Results & Data Vital Signs (Past 12 Hours) Vital Signs Temp Pulse Resp BP BP Pulse Ox 10/24/18 11:34 36.6 C 65 20 146/77 H 97 10/24/18 07:47 36.6 C 117 H 20 165/75 H 96 10/24/18 03:49 36.6 C 54 L 16 124/68 94 Laboratory Results Laboratory Results - last 24 hr 10/24/18 08:13 Potassium 3.7 (1) Compression fracture of L4 vertebra Encounter type: initial encounter Fracture type: closed Qualified Code(s): S32.040A - Wedge compression fracture of fourth lumbar vertebra, initial encounter for closed fracture
--- NOTE | 2018-10-24 13:40 | Discharge Summary ---
Date of Service October 24, 2018 Admission HPI Per Admitting Provider Pt is 88 y/o F with PMH chronic atrial fibrillation on Coumadin, HTN, dyslipidemia, CKD III, diastolic dysfunction presented to ER with c/o AMS. Pt states was painting her car in her garage and reports that garage door was open. States she was then using paint thinners to clean the brushes and was in the garage for approximately 1 hour. Pt states felt like she couldn't think and had some generalized weakness. She spoke to her son who noticed pt seemed confused. This was around 1:30PM. She reports a neighbor then came to check on her. She sat outside for awhile. It is reported by neighbor that she couldn't remember the word department clinician. Symptoms lasted approx 1 hour and have since resolved. Pt reports chronic exertional dyspnea. Denies recent illness. Denies fever/chills, diaphoresis, N/V/D/C, CHOWDHURY, dizziness, syncope, vision changes, neck pain, CP, increased SOB, orthopnea, palpitations, cough, sore throat, choking, otalgia, rhinorrhea, abdominal pain, paresthesias, extremity edema, rashes, urinary symptoms. 02/2018: Hx stress echo : no inducible ischemia, EF: 55%, mild aortic regurgitation, moderate mitral regurgitation, moderate tricuspid regurgitation, mild pulmonary HTN 07/2018: Holter: a-fib with average HR 63bpm, minimal HR of 39 bpm, maximum HR of 169 bpm, PVCs moderate number of isolated complexes and periods of ventricular bigeminy Admission Exam Per Admitting Provider Physical Exam: General: no acute distress, WDWN Head: normocephalic, atraumatic Eyes: PERRL, EOM's intact, conjunctiva non-injected, anicteric ENT: normal inspection external ears, nose, mucous membranes moist Neck: supple, trachea midline Lungs: clear, no respiratory distress, no wheezing/rhonchi/rales CV: irregularly irregular, rate 68, systolic murmur, no pretibial edema Abd: normal BS, soft, non-tender Ext: no cyanosis, no calf tenderness Neuro: A&O x 3, no focal deficits noted, normal speech, no facial drooping, tongue midline, strength 5/5 throughout bilateral upper and lower extremities, normal affect Skin: warm, dry Principal Diagnosis L4 COMPRESSION FRACTURE, S/P FALL Discharge Exam General- oriented x 3, not in distress, speaks in sentences with no effort or accessory muscle use Eyes- anicteric Neck- no JVD Lungs- clear BS BL no rales/wheezing Heart- normal rate, regular rhythm; no murmurs Abdomen- normal bowel sounds, nondistended, soft, nontender Extremities- no pretibial edema, no calf tenderness Neuro- alert, oriented x 3; no gross focal neurologic deficits Skin- warm & dr Discharge Data Allergies Allergy/AdvReac Type Severity Reaction Status Date / Time No Known Allergies Allergy Verified 10/18/18 22:34 Consultations 10/18/18 21:47 ED Decision to Admit Stat 10/19/18 01:30 Consult Case Management - Discharge Planning Routine 10/19/18 08:00 Consult Orthopedic Surgery Routine Ordered Studies 10/18/18 19:39 CT lumbar spine wo con Stat CT SCAN OF THE LUMBAR SPINE WITHOUT IV CONTRAST CLINICAL HISTORY: Fall. Low back pain. COMPARISON STUDY: No priors. TECHNIQUE: CT scan of the lumbar spine is performed from the lower thoracic spine to the sacrum. Images are reviewed in the axial, sagittal, and coronal planes. IV contrast was not administered for this examination. A dose lowering technique was utilized adhering to the principles of ALARA. CT DOSE: 521.03 mGy.cm FINDINGS: The skeletal structures are osteopenic. There is a moderate and acute burst type fracture of L4 with associated paravertebral edema. There are minimally retropulsed fragments by up to 3 mm. Vertebral body height is otherwise maintained throughout the lumbar spine. There is minimal retrolisthesis at L2-L3. Alignment is otherwise preserved. Hyperlordosis is noted. The transverse and spinous processes are intact. No lytic or blastic lesion is seen. There is no spondylolysis. Anterior osteophytes are seen throughout. There is mild/moderate disc space narrowing at L2-L3. The disc spaces are otherwise maintained. There is no evidence of large disc herniation or high-grade central canal stenosis by CT. Multilevel facet arthropathy is noted. The visualized sacrum and bony pelvis appear intact. The paraspinous soft tissues are normal as imaged. Advanced atherosclerotic calcification is noted in the abdominal aorta. A 4.3 cm cyst is partially imaged arising from the upper pole of the left kidney. IMPRESSION: 1. There is a burst type fracture of the L4 vertebral body with moderate loss of height, minimally retropulsed fragments, and associated paravertebral edema. 2. No additional fracture is identified. 3. Osteopenia and spondylotic change as above. Hospital Course (1) Compression fracture of L4 vertebra: -secondary to fall -orthopedic service c/o Dr. Hammond consulted: does not recommend surgery at this time, recommend back brace -patient has received the LSO back brace --> This should be worn when out of bed and ambulating. 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 Silvano Hammond- Ortho spine- in 2 weeks Presyncope at home - likely secondary to Losartan that was recently added Losartan discontinued - Denies recurrence of presyncope while admitted - Monitor blood pressure while offf Losartan Hypertension -continue home dose triamterene-HCTZ -continue amlodipine 10 mg daily -hold off losartan for now Monitor blood pressure trend Hypokalemia -likely due to diuretic blood pressure medication -mild hypokalemia on admission as 3.4 and went up to 3.7 with potassium replacements and is 3.4 on 10/20/18 - increase potassium to 20meq po daily - repeat K in 2-3 days atrial fibrillation -chronic atrial fibrillation -was continued on metoprolol succinate 25 mg daily -INR 2.4, continue home dose coumadin repeat INR in 2-3 day dyslipidemia -continue statin Diastolic dysfunction: Hx diastolic dysfunction -Current euvolemic CKD (chronic kidney disease), stage III: -renal function is stable DVT Prophylaxis -On Coumadin Full Code Disposition d/c to [facility] ff up with PCP 1 week after discharge ff up with Ortho Spine Dr. Silvano Hammond in 2 weeks Total Time Total Time Spent Total Time Spent (In Minutes): 40 minutes Discharge Plan Discharge Items Reason For Visit: NEAR SYNCOPE, FALL Discharge Diagnosis: L4 COMPRESSION FRACTURE, S/P FALL Discharge Goals: Diagnostic testing and Therapeutic intervention Activity: As commented below Activity Comment: ALWAYS WITH ASSISTANCE, FALL PRECAUTIONS Lifting: Wait until after follow-up appointment Exercise/Sports: Wait until after follow-up appointment Driving/Machine Use Comment: NO DRIVING Non-emergency contact: Primary Care Provider and Surgeon Call non-emergency contact if: you have any medication questions, your symptoms worsen and you have a fever Follow-up/Referrals: Bette Pérez MD [Primary Care Provider] - Diet: Heart Healthy Add Provider Instructions: FOLLOW UP WITH PRIMARY CARE PHYSICIAN DR. OSMIN LOUIE 1 WEEK AFTER DISCHARGE FROM [facility]. FOLLOW WITH ORTHOPEDIC SURGEON DR. SILVANO HAMMOND IN 2 WEEKS. MONITOR BLOOD PRESSURE. REPEAT K IN 2-3 DAYS. REPEAT INR IN 2-3 DAYS AND MONITOR REGULARLY. ADJUST COUMADIN NEEDED. PLEASE REFER TO ACCOMPANYING HOSPITAL DISCHARGE SUMMARY FOR FURTHER DETAILS. Prescriptions: New sennosides [Senokot] 8.6 mg Tablet 8.6 mg PO QAM 30 Days Qty: 30 RF: 0 potassium chloride [Klor-Con M10] 10 mEq Tablet,Er Particles/Crystals 20 meq PO DAILY 30 Days Qty: 60 RF: 1 tramadol 50 mg tablet 50 mg PO Q8H PRN (Reason: pain) Qty: 10 RF: 0 Continued warfarin 2.5 mg tablet 2.5 mg PO 5XWK RF: 0 atorvastatin 10 mg Tablet 10 mg PO HS RF: 0 warfarin 2.5 mg Tablet 1.25 mg PO 2XWK RF: 0 triamterene-hydrochlorothiazid 37.5-25 mg Tablet 1 tab PO DAILY RF: 0 metoprolol succinate 25 mg Tablet Extended Release 24 Hr 25 mg PO DAILY RF: 0 cholecalciferol (vitamin D3) 2,000 unit Capsule 2,000 units PO DAILY RF: 0 amlodipine 10 mg tablet 10 mg PO QAM 30 Days Qty: 30 RF: 0 Discontinued losartan 25 mg tablet 25 mg PO QAM 30 Days Qty: 30 RF: 0 Stand-Alone Forms: [facility] Admission Data Admit Date/Time: 10/18/18 23:09 Attending Provider: Ulysses Jorge Admit Provider: Ravi Guo Primary Care Provider: Bette Pérez Other Providers: Ravi Guo ; Silvano Hammond ; Rick Gallego Service: Telemetry Medical
[2018-10-24] MEDS: WARFARIN SOD 2.5 MG TAB PO SCH (15:38)
[2018-10-24] MEDS ORDERED: MAGNESIUM HYDROXIDE SUSP 30 ML UDC PO ONE (15:39)
== END 2018-10-24 17:40 | DRG 552 ==
LOC: ED 19:20 → SUATTDRO 23:09 → 2N 23:09